=== PATIENT | female | born 1960 | race Caucasian/White ===

== ENCOUNTER 2021-08-15 07:13 | Outpatient (REF) | payer OTHER, SELFPAY ==
[2021-08-15 11:43] LABS: MANUAL DIFF FLAG NO
[2021-08-15 11:49] LABS: Basophils Absolute Auto 0.1 X10*3/uL (0.0-0.2); Basophils Percent Auto 0.7 % (0-2); Eosinophils Absolute Auto 0.4 X10*3/uL (0.0-0.4); Eosinophils Percent Auto 5.2 % (0-4); Hematocrit 43.9 % (37.0-47.0); Hemoglobin 14.3 g/dl (12.0-16.0); Imm Gran Abs Auto 0.02 X10*3/uL (0.00-0.03); Imm Gran Pct Auto 0.3 % (0.0-0.4); Lymphocytes Absolute Auto 2.2 X10*3/uL (1.2-4.9); Lymphocytes Percent Auto 32.4 % (20-40); Mean Corpuscular HGB Conc 32.6 g/dl (31.0-35.0); Mean Corpuscular Hemoglobin 30.2 pg (27.0-33.0); Mean Corpuscular Volume 92.6 fL (80.0-98.0); Mean Platelet Volume 11.2 fL (9.4-12.3); Monocytes Absolute Auto 0.5 X10*3/uL (0.1-1.2); Monocytes Percent Auto 6.8 % (2-11); Neutrophils Absolute Auto 3.8 x10*3/uL (2.0-8.3); Neutrophils Percent Auto 54.6 % (45-73); Platelet Count 284 X10*3/uL (160-400); Red Blood Count 4.74 X10*6/uL (4.20-5.50); Red Cell Distribution Width 12.4 % (11.0-16.0); White Blood Count 6.9 X10*3/uL (4.8-10.8)
[2021-08-15 11:52] LABS: Appearance Urine HAZY; Color Urine YELLOW; Glucose Urine UA NEG (NEG); Leukocyte Esterase Urine TRACE (NEG); Nitrite Urine NEG (NEG); Specific Gravity - Urine 1.015 (1.005-1.025); Urine Blood NEG (NEG); Urine Ketones 5 MG/DL (NEG); Urine Protein TRACE MG/DL (NEG-TRACE)
[2021-08-15 12:15] LABS: Alanine Aminotransferase 15 U/L (0-31); Albumin Level 4.2 g/dL (3.5-5.0); Alkaline Phosphatase 65 U/L (39-117); Anion Gap 9 (12-20); Aspartate Amino Transferase 17 U/L (5-31); Bilirubin Total 0.8 mg/dL (0.0-1.0); Blood Urea Nitrogen 14 mg/dL (9-16); Calcium 9.4 mg/dL (8.4-10.2); Carbon Dioxide 28 mmol/L (22-29); Chloride 108 mmol/L (96-108); Cholesterol 233 mg/dL; Estimated Glomerular Filt Rate > 60; Glucose Random 100 mg/dL (60-115); HDL Cholesterol 51 mg/dL; LDL Cholesterol Calculated 166 mg/dl; Potassium 4.3 mmol/L (3.3-5.1); Sodium 141 mmol/L (135-145); Total Protein 6.6 g/dL (6.5-8.0); Triglycerides 81 mg/dL
[2021-08-15 12:18] LABS: Estimated Average Glucose 88 mg/dL; Hemoglobin A1c % 4.7 %
[2021-08-15 12:23] LABS: Free T4 (Free Thyroxine) 1.05 ng/dL (0.71-1.85); Thyroid Stimulating Hormone 3.57 uIU/mL (0.32-4.0); Vitamin D 25-OH Total 26.9 ng/mL (>30)
[2021-08-15 12:31] LABS: Vitamin B12 399 pg/mL (200-900)
[2021-08-15 13:07] LABS: Bacteria Urine 1+ /LPF; RBC Urine 0 /HPF (0); Squamous Epithelial Cell Urine 3+ /LPF; WBC Urine 0-2 /HPF (0-4)
[2021-08-19 13:32] LABS: Venous Lead 1 mcg/dL (<5)
== END 2021-08-15 07:14 | disposition home or self-care (01) ==
LOC: HO.HMGCLDS 07:13
PROVIDERS: PCP Internal Medicine; Visit Provider Internal Medicine
DX: Z13.88 Encounter for screening for disorder due to exposure to contaminants (principal); E78.00 Pure hypercholesterolemia, unspecified; R73.01 Impaired fasting glucose
CPT/HCPCS: 36415; 80053; 80061; 81001; 82306; 82607; 82746; 83036; 83655; 84439; 84443; 85025

== ENCOUNTER 2022-09-29 07:04 | Outpatient (REF) | payer OTHER, SELFPAY ==
[2022-09-29 11:15] LABS: MANUAL DIFF FLAG NO
[2022-09-29 11:33] LABS: Basophils Absolute Auto 0.1 X10*3/uL (0.0-0.2); Basophils Percent Auto 0.9 % (0-2); Eosinophils Absolute Auto 0.3 X10*3/uL (0.0-0.4); Eosinophils Percent Auto 4.6 % (0-4); Hematocrit 42.6 % (37.0-47.0); Imm Gran Abs Auto 0.02 X10*3/uL (0.00-0.03); Imm Gran Pct Auto 0.3 % (0.0-0.4); Lymphocytes Absolute Auto 2.3 X10*3/uL (1.2-4.9); Lymphocytes Percent Auto 33.2 % (20-40); Mean Corpuscular HGB Conc 32.9 g/dl (31.0-35.0); Mean Corpuscular Hemoglobin 30.2 pg (27.0-33.0); Mean Platelet Volume 11.2 fL (9.4-12.3); Monocytes Absolute Auto 0.5 X10*3/uL (0.1-1.2); Monocytes Percent Auto 6.9 % (2-11); Neutrophils Absolute Auto 3.7 x10*3/uL (2.0-8.3); Neutrophils Percent Auto 54.1 % (45-73); Platelet Count 280 X10*3/uL (160-400); Red Blood Count 4.63 X10*6/uL (4.20-5.50); Red Cell Distribution Width 12.5 % (11.0-16.0); White Blood Count 6.9 X10*3/uL (4.8-10.8)
[2022-09-29 12:16] LABS: Estimated Average Glucose 88 mg/dL; Hemoglobin A1c % 4.7 %
[2022-09-29 12:20] LABS: Alanine Aminotransferase 14 U/L (0-31); Albumin Level 4.1 g/dL (3.5-5.0); Alkaline Phosphatase 69 U/L (39-117); Anion Gap 12 (12-20); Aspartate Amino Transferase 16 U/L (5-31); Bilirubin Total 1.1 mg/dL (0.0-1.0); Blood Urea Nitrogen 11 mg/dL (9-16); C Reactive Protein 0.18 mg/dL (< or = 0.50); Calcium 9.3 mg/dL (8.4-10.2); Carbon Dioxide 27 mmol/L (22-29); Chloride 108 mmol/L (96-108); Cholesterol 207 mg/dL; Estimated Glomerular Filt Rate > 60; Glucose Random 84 mg/dL (60-115); HDL Cholesterol 51 mg/dL; LDL Cholesterol Calculated 139 mg/dl; Potassium 4.2 mmol/L (3.3-5.1); Sodium 143 mmol/L (135-145); Total Protein 6.3 g/dL (6.5-8.0); Triglycerides 85 mg/dL
[2022-09-29 12:27] LABS: Thyroid Stimulating Hormone 2.54 uIU/mL (0.32-4.0); Vitamin B12 504 pg/mL (200-900); Vitamin D 25-OH Total 28.8 ng/mL (>30)
[2022-09-29 12:32] LABS: Erythrocyte Sedimentation Rate 6 MM/HR (0-20)
== END 2022-09-29 07:05 | disposition home or self-care (01) ==
LOC: HO.HMGCLDS 07:04
PROVIDERS: PCP Internal Medicine; Visit Provider Internal Medicine
DX: K21.9 Gastro-esophageal reflux disease without esophagitis (principal); E78.00 Pure hypercholesterolemia, unspecified; R73.01 Impaired fasting glucose; Z82.49 Family history of ischemic heart disease and other diseases of the circulatory system; E55.9 Vitamin D deficiency, unspecified
CPT/HCPCS: 36415; 80053; 80061; 82306; 82607; 82746; 83036; 84443; 85025; 85652; 86140

== ENCOUNTER 2023-03-03 08:24 | Outpatient (AMB) | payer OTHER, SELFPAY ==
[2023-03-03 08:32] VITALS: BP 102/68; PULSE 64; O2SAT 97; BMI 28.3
--- NOTE | 2023-03-03 08:32 | A.OFFPC_ITS ---
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 August 2022 last seen colonoscopy up-to-date 2018 with tubular adenoma.thoracic back pain, deny fall or trauma. decline xray to be done. Patient had a lot of questions regarding the blood work each in every abnormality is explain for eosinophilia was concerned about parasites, elevated bilirubin , change in sodium, hemoglobin A1c patient has some concerns about dementia also and that since she had some family history would like to improve her chances on not getting. Was concerned about a po E 4 patient is advised to follow-up with Neurology for further workup. [facility] Medical History (Updated 03/03/23 @ 09:07 by Roz Sellers MD) Breast cancer screening by mammogram Cervical cancer GERD (gastroesophageal reflux disease) Surgical History Wrist fracture, left Ovarian cyst S/P breast lumpectomy Family History Mother Dementia, Onset Age: 70 Father Heart valve replaced Sister No problems noted. Brother No problems noted. Brother No problems noted. Brother CAD (coronary artery disease) Daughter No problems noted. Maternal Grandmother Dementia Maternal Grandfather Heart attack Maternal Aunt CVA (cerebral vascular accident) Maternal Uncle CAD (coronary artery disease) Other Colon cancer Social History Housing: House Alcohol intake: current Patient Tobacco Use Status: Former Tobacco user Tobacco use type: Cigarette Years Smoked: quit 24 years old e-Cigarette/Vaping Use: Never Used Second Hand Smoke Exposure: No service: No Current occupational status: employed Cognitive needs: No Hearing needs: No Vision needs: No Questionnaire Thrive Questionnaire Date Thrive assessed: 09/01/22 LOWELL-7 AMB Questionnaire LOWELL-7 Date LOWELL - 7 assessed: 09/01/22 Source: Developed by Drs. Tony Conti, Digna Severino, Cyrus Wagner and colleagues, with an educational babak from [employer]. Physical exam (Primary Care) BMI result Body Mass Index 28.3 Tobacco/Smoking Status: Tobacco use Status Tobacco use date assessed 09/01/22 03/03/23 08:36 Patient Tobacco Use Status Former Tobacco user 03/03/23 08:36 Tobacco use type Cigarette 03/03/23 08:36 e-Cigarette/Vaping Use Never Used 03/03/23 08:36 Thrive Assessment: Date of Thrive Assessment Date Thrive assessed 09/01/22 03/03/23 08:36 Const General: alert; No acute distress Eyes Conjunctivae: conjunctivae normal Resp Auscultation: clear to auscultation bilaterally Cardio Rate: regular rate Rhythm: regular rhythm GI Inspection: Yes normal to inspection Extrem General: Yes normal to inspection and No edema Office Procedures Flu Questionnaire Does the patient have a severe egg allergy?: No Immunizations flu vacc [id number] 6mos up(PF) 60 mcg(15 mcgx4)/0.5 mL IM syringe Performing Provider: Roz Sellers MD [facility] [place] [facility] Documented (not given) by: TRINY Perez on 03/03/23 08:36 Reason Not Given: Patient Refused Assessment and Plan Assessment & Plan (1) Impaired fasting blood sugar: Code(s): R73.01 - Impaired fasting glucose Plan: Decrease the amount of carbohydrate intake, pasta, bread, rice and potatoes are all sugar and that is aside from all the sweet stuff, remember that fruits are good but they are Sweet also. September 2022 blood work is normal (2) GERD (gastroesophageal reflux disease): Code(s): K21.9 - Gastro-esophageal reflux disease without esophagitis Plan: Avoid the foods that causes that usually spicy foods, tomato products, juices, coffee, soda and foods that your sensitive to. After eating do not lie down, allow 3-4 hours before in lie down. And keep the head of bed above 30 degrees to avoid the acid from going up. (3) Hypercholesterolemia: Code(s): E78.00 - Pure hypercholesterolemia, unspecified Plan: Avoid fried foods, chicken skin, eggs, butter margarine, pastries and meat. Be it pork or beef they have a lot of cholesterol LDL goal of less than 130 and triglyceride of less than 150. Diet control (4) Cognitive change: Code(s): R41.89 - Other symptoms and signs involving cognitive functions and awareness (5) Thoracic back pain: Code(s): M54.6 - Pain in thoracic spine (6) Bilateral hip pain: Code(s): M25.551 - Pain in right hip; M25.552 - Pain in left hip Orders: Orders Influenza [id number] Immunization Today Z23 - Encounter for immunization Complete Blood Count Auto Diff Today K21.9 - Gastro-esophageal reflux disease without esophagitis Thyroid Stimulating Hormone Today K21.9 - Gastro-esophageal reflux disease without esophagitis Vitamin D 25-OH Total Today K21.9 - Gastro-esophageal reflux disease without esophagitis Erythrocyte Sedimentation Rate Today K21.9 - Gastro-esophageal reflux disease without esophagitis C Reactive Protein Today K21.9 - Gastro-esophageal reflux disease without esophagitis XR thoracic spine 2V Today M54.6 - Pain in thoracic spine Comprehensive Met. Panel Today K21.9 - Gastro-esophageal reflux disease without esophagitis UA w Microscopic Today K21.9 - Gastro-esophageal reflux disease without esophagitis Free T4 (Free Thyroxine) Today K21.9 - Gastro-esophageal reflux disease without esophagitis Vitamin B12 and Folate Today K21.9 - Gastro-esophageal reflux disease without esophagitis Lipid Panel Today E78.00 - Pure hypercholesterolemia, unspecified, K21.9 - Gastro-esophageal reflux disease without esophagitis Referrals Neurology Referral R41.89 - Other symptoms and signs involving cognitive functions and awareness Coding Level of Care Code Est Pt Level 4 (27134) Diagnoses Impaired fasting blood sugar R73.01 GERD (gastroesophageal reflux disease) K21.9 Hypercholesterolemia E78.00 Cognitive change R41.89 Thoracic back pain M54.6 Bilateral hip pain M25.551; M25.552
== END 2023-03-03 09:13 | disposition home or self-care (01) ==
PROVIDERS: Visit Provider Internal Medicine
DX: R73.01 Impaired fasting glucose (principal); K21.9 Gastro-esophageal reflux disease without esophagitis; E78.00 Pure hypercholesterolemia, unspecified; R41.89 Other symptoms and signs involving cognitive functions and awareness; M54.6 Pain in thoracic spine; M25.551 Pain in right hip; M25.552 Pain in left hip
CPT/HCPCS: 99214

== ENCOUNTER 2023-04-15 07:29 | Outpatient (REF) | payer OTHER, SELFPAY ==
[2023-04-15 11:14] LABS: MANUAL DIFF FLAG NO
[2023-04-15 11:29] LABS: Appearance Urine Cloudy; Color Urine Yellow; Glucose Urine UA Negative (Negative); Leukocyte Esterase Urine Moderate (2+) (Negative); Nitrite Urine Negative (Negative); PH 7.5 (5.0-9.0); UMIC TRIGGER UA YES; Urine Blood Negative (Negative); Urine Ketones Negative (Negative); Urine Protein Negative (Neg-Trace)
[2023-04-15 11:33] LABS: Bacteria Urine 1+ (None Seen); Hyaline Casts Urine 0-2 /LPF (0-2); RBC Urine 0-2 /HPF (0-2)
[2023-04-15 11:44] LABS: Basophils Absolute Auto 0.1 X10*3/uL (0.0-0.2); Basophils Percent Auto 0.8 % (0-2); Eosinophils Absolute Auto 0.4 X10*3/uL (0.0-0.4); Eosinophils Percent Auto 5.8 % (0-4); Hematocrit 42.5 % (37.0-47.0); Hemoglobin 13.8 g/dl (12.0-16.0); Imm Gran Abs Auto 0.01 X10*3/uL (0.00-0.03); Imm Gran Pct Auto 0.2 % (0.0-0.4); Lymphocytes Absolute Auto 1.9 X10*3/uL (1.2-4.9); Lymphocytes Percent Auto 30.2 % (20-40); Mean Corpuscular HGB Conc 32.5 g/dl (31.0-35.0); Mean Corpuscular Hemoglobin 29.9 pg (27.0-33.0); Mean Platelet Volume 10.6 fL (9.4-12.3); Monocytes Absolute Auto 0.4 X10*3/uL (0.1-1.2); Monocytes Percent Auto 6.9 % (2-11); Neutrophils Absolute Auto 3.5 x10*3/uL (2.0-8.3); Neutrophils Percent Auto 56.1 % (45-73); Platelet Count 271 X10*3/uL (160-400); Red Blood Count 4.62 X10*6/uL (4.20-5.50); Red Cell Distribution Width 12.1 % (11.0-16.0); White Blood Count 6.3 X10*3/uL (4.8-10.8)
[2023-04-15 12:06] LABS: Alanine Aminotransferase 17 U/L (0-31); Albumin Level 3.9 g/dL (3.5-5.0); Alkaline Phosphatase 70 U/L (39-117); Anion Gap 9 (12-20); Aspartate Amino Transferase 20 U/L (5-31); Bilirubin Total 0.5 mg/dL (0.0-1.0); Blood Urea Nitrogen 14 mg/dL (9-16); C Reactive Protein 0.13 mg/dL (< or = 0.50); Carbon Dioxide 29 mmol/L (22-29); Chloride 108 mmol/L (96-108); Cholesterol 220 mg/dL (<200); Estimated Glomerular Filt Rate > 60; Glucose Random 94 mg/dL (60-115); HDL Cholesterol 54 mg/dL (>40); LDL Cholesterol Calculated 156 mg/dL (<100); Potassium 4.1 mmol/L (3.3-5.1); Sodium 142 mmol/L (135-145); Total Protein 6.5 g/dL (6.5-8.0); Triglycerides 54 mg/dL (<150)
[2023-04-15 12:14] LABS: Free T4 (Free Thyroxine) 0.94 ng/dL (0.71-1.85); Thyroid Stimulating Hormone 2.54 uIU/mL (0.32-4.0); Vitamin D 25-OH Total 54.8 ng/mL (>30)
[2023-04-15 12:22] LABS: Erythrocyte Sedimentation Rate 9 MM/HR (0-20)
[2023-04-15 12:31] LABS: Folate 12.1 ng/mL (> or = 4.0); Vitamin B12 504 pg/mL (200-900)
== END 2023-04-15 07:30 | disposition home or self-care (01) ==
LOC: HO.HMGCLDS 07:29
PROVIDERS: PCP Internal Medicine; Visit Provider Internal Medicine
DX: K21.9 Gastro-esophageal reflux disease without esophagitis (principal); E78.00 Pure hypercholesterolemia, unspecified
CPT/HCPCS: 36415; 80053; 80061; 81001; 82306; 82607; 82746; 84439; 84443; 85025; 85652; 86140

== ENCOUNTER 2023-07-28 08:05 | Outpatient (AMB) | payer OTHER, SELFPAY ==
--- NOTE | 2023-07-28 08:07 | A.OFFVIS_ITS ---
Intake Vital Signs 07/28/23 08:08 Height 5 ft 2 in Weight 157 lb 8 oz BMI 28.8 BP 108/62 Blood Pressure Location Rt brachial Position Sitting Respiration 16 Pulse 69 Pulse Source Pulse Oximeter Pulse Oximetry (%) 98 Oxygen Delivery Method Room Air Intake Visit Reasons: ENP- Cognitive awareness-LVM Intake Note: Pt presents for new patient evaluation for cognitive impairment. Manager Advertising Required: No Allergies ampicillin Allergy (Mild, Verified 07/28/23 08:07) Unknown Medication List - Last Reconciled 07/28/23 by Malu Bee MD ascorbate calcium (vitamin C) 500 mg PO DAILY cholecalciferol (vitamin D3) 50 mcg PO DAILY coenzyme Q10 (CoQ-10) 30 mg PO DAILY ginkgo biloba 40 mg PO DAILY multivitamin 1 tab PO DAILY [NEuroQ 2 ea PO] HPI HPI Comments History of Present Illness Details 63y/o female comes for evaluation of cog nitive change. she has a family h/o dementia in her mother and maternal grandmother. The patient was tested 10 years ago when she had mild cognitive issues - neuropsych testing was normal. She started noticing cognitive issues about 10 years ago and has mildly progressed. she denies confusion but has trouble retrieving words, had trouble remembering her anniversary date, when typing she realized she was mixing words or letters, some trouble finding her phone and keys, trouble finding names of people etc. when she speaks she feels like wrong words come out. she is concerned about her family history and tries to keep track of all the research . she is also concerned about diabetes worsening her cognition.she has no h/o diabetes. she used to be prediabetic and with changing her diet and lifestyle her Hg A 1 C improved. 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 stress, sleep deprivation makes the cognitive issues worse. No h/o depression or anxiety, no h/o alcoholism , no h/o head injury. she also started noticing numbness and tingling in ree hands, usually at night wakes up with numbness. she has pain in her left hand - she has h/o wrist fracture 5 years ago . she was exposed to lead when she was painting an old house. [facility] Medical History (Updated 07/28/23 @ 11:50 by Malu Bee MD) Family history of Alzheimer's disease Numbness and tingling in both hands Breast cancer screening by mammogram Cervical cancer GERD (gastroesophageal reflux disease) Surgical History Wrist fracture, left Ovarian cyst S/P breast lumpectomy Family History Mother Dementia, Onset Age: 70 Father Heart valve replaced Sister No problems noted. Brother No problems noted. Brother No problems noted. Brother CAD (coronary artery disease) Daughter No problems noted. Maternal Grandmother Dementia Maternal Grandfather Heart attack Maternal Aunt CVA (cerebral vascular accident) Maternal Uncle CAD (coronary artery disease) Other Colon cancer Social History Housing: House Alcohol intake: current Patient Tobacco Use Status: Former Tobacco user Tobacco use type: Cigarette Years Smoked: quit 24 years old e-Cigarette/Vaping Use: Never Used Second Hand Smoke Exposure: No service: No Current occupational status: employed Cognitive needs: No Hearing needs: No Vision needs: No Physical Exam Vital Signs: Last Vital Signs Pulse 69 07/28/23 08:08 Resp 16 07/28/23 08:08 BP 108/62 07/28/23 08:08 Pulse Ox 98 07/28/23 08:08 Oxygen Delivery Method Room Air 07/28/23 08:08 BMI result Body Mass Index 28.8 Const General: cooperative, healthy appearing, comfortable and no acute distress Nutritional Appearance: average body habitus Orientation/consciousness: patient oriented x3 Limitations: no limitations Eyes Pupils: Equal, round and reactive pupils present Neuro General: patient oriented x3, gait normal, tone normal, moves all extremities and no focal motor deficits Cranial nerves: Yes Facial sensation intact/muscles of mastication intact, Yes Equal, round and reactive pupils present, Yes Bilaterally intact EOM present, Yes Nystagmus not present, Yes Normal facial strength present, Yes Midline tongue present and Yes Symmetric palate elevation present Cognition (Neuro): normal cognition Gait exam (Neuro): Normal gait present Motor exam (neuro): 5/5 motor strength present throughout and Normal motor muscle tone present throughout Deep tendon reflexes (DTR's): Right triceps reflex intensity grade: 2+, Left triceps reflex intensity grade: 2+, Rt Biceps (C5, C6): 2+, Left biceps reflex intensity grade: 2+, Right brachioradialis reflex intensity grade: 2+, Left brac hioradialis reflex intensity grade: 2+, Right patellar reflex intensity grade: 2+ and Left patellar reflex intensity grade: 2+ Coordination: [id number] test normal Orientation What is the (year) (season) (date) (day) (month)?: year, season, date, day and month Where are we (state) (county) (town or city) (hospital) (floor)?: state, county, town or city, hospital/clinic and floor Registration Name of 3 unrelated objects clearly and slowly, then ask patient to repeat all 3 of them. (1st repeat determines score. Make sure they can repeat all three): object 1, object 2 and object 3 Attention & Calculation (CHOOSE ONE) Ask pt to begin with 100 & count backward by 7. Stop after 5 repeats. If pt cannot ask them to spell the word WORLD backward.: 93, 86, 79, 72 and 65 Recall Ask patient to repeat the 3 items from question #3.: object 1, object 2 and object 3 Language Show patient a wristwatch & ask what it is. Repeat for pencil.: watch and pencil Ask the patient to repeat the phrase 'No ifs, ands, or buts' after you.: correct Ask the patient to 'take a piece of paper with their right hand' 'fold paper in half' 'place paper on floor': take paper in right hand, fold paper in half and place paper on floor Print the sentence 'CLOSE YOUR EYES' on a piece. If patient actually closes eyes then score.: followed written direction Give patient a blank piece of paper & ask to write a sentence. Score if it contains a noun & verb.: sentence contains subject and verb Ask patient to copy figure of intersecting pentagons exactly. Score if all 10 angles & 2 intersects are included.: all 10 angles present & 2 are intersected Score Score: 30 Assessment & Plan Assessment & Plan (1) Cognitive change: Code(s): R41.89 - Other symptoms and signs involving cognitive functions and awareness (2) Family history of Alzheimer's disease: Code(s): Z82.0 - Family history of epilepsy and other diseases of the nervous system Plan She is interested in testing for ApOE4 gene - will order with [facility] or [facility] Neuropsych report [facility] MRI Brain EMG NCS upper extremities - ? carpal tunnel Reviewed labs . Cognitive therapy Orders: Orders Other Ref Test - Misc Today R41.89 - Other symptoms and signs involving cognitive functions and awareness, Z82.0 - Family history of epilepsy and other diseases of the nervous system MR brain wo con w neuroquant Today R41.89 - Other symptoms and signs involving cognitive functions and awareness NE electromyogram (EMG) Today R20.0 - Anesthesia of skin, R20.2 - Paresthesia of skin NE nerve conduction velocity Today R20.0 - Anesthesia of skin, R20.2 - Paresthesia of skin Referrals Speech and Hearing Referral R41.89 - Other symptoms and signs involving cognitive functions and awareness Medications: New [Left and Right wrist splint] As directed 1 ea 0RF carpal tunnel R20.0 - Anesthesia of skin, R20.2 - Paresthesia of skin Coding Level of Care Code New Pt Level 4 (22997) Diagnoses Cognitive change R41.89 Family history of Alzheimer's disease Z82.0
[2023-07-28 08:08] VITALS: BP 108/62; PULSE 69; RESP 16; O2SAT 98; BMI 28.8
== END 2023-07-28 09:09 | disposition home or self-care (01) ==
PROVIDERS: PCP Internal Medicine; Visit Provider Psychiatry & Neurology Neurology
DX: R41.89 Other symptoms and signs involving cognitive functions and awareness (principal); Z82.0 Family history of epilepsy and other diseases of the nervous system
CPT/HCPCS: 99204

== ENCOUNTER → 2023-07-28 08:05 | Outpatient (BNVA) | payer OTHER, SELFPAY | PROVIDERS: PCP Internal Medicine; Visit Provider Psychiatry & Neurology Neurology ==

== ENCOUNTER 2023-08-05 08:57 | Outpatient (REF) | payer OTHER, SELFPAY ==
--- NOTE | 2023-08-05 09:00 | EMG_ITS ---
Bilateral median and ulnar motor and sensory studies were performed. Bilateral radial and sensory studies were performed and median and lateral antecubital brachial sensory studies were performed. Paraspinal muscles were tested with a needle. IMPRESSION: Mild bilateral median neuropathy across carpal tunnel. MD SENA Ness/DONTRELL / [phone]
== END 2023-08-05 08:58 | disposition home or self-care (01) ==
LOC: HO.NEURO 08:57
PROVIDERS: PCP Internal Medicine; Visit Provider Psychiatry & Neurology Neurology
DX: R20.0 Anesthesia of skin (principal); R20.2 Paresthesia of skin
CPT/HCPCS: 95886; 95913

== ENCOUNTER 2023-08-12 09:18 | Outpatient (REF) | payer OTHER, SELFPAY | END 2023-08-12 09:19 | disposition home or self-care (01) | LOC: HO.HKASLDS 09:18 | PROVIDERS: Visit Provider Psychiatry & Neurology Neurology | DX: R41.89 Other symptoms and signs involving cognitive functions and awareness (principal); Z82.0 Family history of epilepsy and other diseases of the nervous system | CPT/HCPCS: 82542 ==

== ENCOUNTER 2023-08-18 18:48 | Outpatient (REF) | payer OTHER, SELFPAY ==
--- NOTE | ~2023-08-18 | MR_ITS ---
EXAMINATION: MRI OF THE BRAIN WITHOUT IV CONTRAST INDICATION: Symptoms and signs involving cognitive functions and awareness. COMPARISON: None available. TECHNIQUE: Multiplanar multisequence MR imaging of the brain without administration of intravenous contrast. FINDINGS: No acute intracranial hemorrhage or infarct. No edema, midline shift or hydrocephalus. No acute extra-axial fluid collections. The osseous structures are unremarkable. The pituitary gland, pineal gland and remaining midline structures are unremarkable. No orbital pathology. The paranasal sinuses and mastoid air cells are clear. MR/MR brain wo con w neuroquant IMPRESSION: No acute intracranial abnormalities.
== END 2023-08-18 18:49 | disposition home or self-care (01) ==
LOC: HO.MRI 18:48
PROVIDERS: PCP Internal Medicine; Visit Provider Psychiatry & Neurology Neurology
DX: R41.89 Other symptoms and signs involving cognitive functions and awareness (principal)
CPT/HCPCS: 70551; 76377

== ENCOUNTER 2023-09-09 06:56 | Outpatient (REF) | payer OTHER, SELFPAY ==
[2023-09-09 10:22] LABS: MANUAL DIFF FLAG NO
[2023-09-09 10:33] LABS: Basophils Absolute Auto 0.1 X10*3/uL (0.0-0.2); Eosinophils Absolute Auto 0.3 X10*3/uL (0.0-0.4); Eosinophils Percent Auto 4.9 % (0-4); Hematocrit 42.7 % (37.0-47.0); Hemoglobin 14.1 g/dl (12.0-16.0); Imm Gran Abs Auto 0.02 X10*3/uL (0.00-0.03); Imm Gran Pct Auto 0.3 % (0.0-0.4); Lymphocytes Absolute Auto 2.2 X10*3/uL (1.2-4.9); Lymphocytes Percent Auto 32.2 % (20-40); Mean Corpuscular Hemoglobin 30.3 pg (27.0-33.0); Mean Corpuscular Volume 91.8 fL (80.0-98.0); Mean Platelet Volume 10.9 fL (9.4-12.3); Monocytes Absolute Auto 0.5 X10*3/uL (0.1-1.2); Monocytes Percent Auto 6.7 % (2-11); Neutrophils Absolute Auto 3.7 x10*3/uL (2.0-8.3); Neutrophils Percent Auto 54.9 % (45-73); Platelet Count 267 X10*3/uL (160-400); Red Blood Count 4.65 X10*6/uL (4.20-5.50); Red Cell Distribution Width 12.4 % (11.0-16.0); White Blood Count 6.7 X10*3/uL (4.8-10.8)
[2023-09-09 11:08] LABS: Estimated Average Glucose 97 mg/dL
[2023-09-09 11:30] LABS: Alanine Aminotransferase 16 U/L (0-31); Alkaline Phosphatase 61 U/L (39-117); Anion Gap 13 (12-20); Aspartate Amino Transferase 19 U/L (5-31); Bilirubin Total 0.6 mg/dL (0.0-1.0); Blood Urea Nitrogen 16 mg/dL (9-16); Calcium 9.6 mg/dL (8.4-10.2); Carbon Dioxide 24 mmol/L (22-29); Chloride 107 mmol/L (96-108); Cholesterol 216 mg/dL (<200); Estimated Glomerular Filt Rate > 60; Free T4 (Free Thyroxine) 0.93 ng/dL (0.71-1.85); Glucose Random 85 mg/dL (60-115); HDL Cholesterol 55 mg/dL (>40); LDL Cholesterol Calculated 149 mg/dL (<100); Potassium 4.1 mmol/L (3.3-5.1); Sodium 140 mmol/L (135-145); Thyroid Stimulating Hormone 3.28 uIU/mL (0.32-4.0); Total Protein 6.6 g/dL (6.5-8.0); Triglycerides 63 mg/dL (<150); Vitamin D 25-OH Total 62.8 ng/mL (>30)
[2023-09-09 11:43] LABS: Folate 12.7 ng/mL (> or = 4.0); Vitamin B12 544 pg/mL (200-900)
== END 2023-09-09 06:57 | disposition home or self-care (01) ==
LOC: HO.HMGCLDS 06:56
PROVIDERS: PCP Internal Medicine; Visit Provider Internal Medicine
DX: R73.01 Impaired fasting glucose (principal); E78.00 Pure hypercholesterolemia, unspecified
CPT/HCPCS: 36415; 80053; 80061; 82306; 82607; 82746; 83036; 84439; 84443; 85025

== ENCOUNTER 2023-09-13 09:01 | Outpatient (AMB) | payer OTHER, SELFPAY ==
--- NOTE | 2023-09-13 09:02 | MHC.PC.OV ---
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 Allergies ampicillin Allergy (Mild, Verified 07/28/23 08:07) Unknown Medication List - Last Reconciled 09/13/23 by Roz Sellers MD ascorbate calcium (vitamin C) 500 mg PO DAILY cholecalciferol (vitamin D3) 50 mcg PO DAILY coenzyme Q10 (CoQ-10) 30 mg PO DAILY ginkgo biloba 40 mg PO DAILY [Left and Right wrist splint As directed] multivitamin 1 tab PO DAILY [NEuroQ 2 ea PO] Tobacco use date assessed: 09/13/23 Fall risk assessment: No Falls in past year Last assessed Fall Risk: 09/13/23 Dental Screening Dental Screen Date: 09/13/23 Did you have a dental visit in the last 12 months?: Yes Did you have a dental problem in the last 6 months where you did not have access to dental care?: No Was dental information given to patient?: Patient has dentist HPI Annual Exam HPI Details 63-year-old overweight female with impaired glucose tolerance GERD hypercholesterolemia coming in for physical exam last seen in February 2023. Patient's last colonoscopy was 2018 with tubular adenoma. Mammograms up-to-date review of the notes was seen by Neurology for cognitive impairment and had a CT scan done revealing negative results. In July 2023 had a nerve conduction test of the hands revealing mild bilateral median neuropathy across carpal tunnel. dizzy- 2 weeks ago- lasting 2 min dont remember. occ indigestion- gas, states 2x a week . . occ urgency mild leakage. [facility] Medical History (Updated 09/13/23 @ 09:16 by Roz Sellers MD) Family history of Alzheimer's disease Numbness and tingling in both hands Breast cancer screening by mammogram Cervical cancer GERD (gastroesophageal reflux disease) Surgical History Wrist fracture, left Ovarian cyst S/P breast lumpectomy Family History (Updated 09/13/23 @ 09:22 by Roz Sellers MD) Mother Dementia, Onset Age: 70 Father Heart valve replaced Sister No problems noted. Brother No problems noted. Brother No problems noted. Brother CAD (coronary artery disease) Daughter No problems noted. Maternal Grandmother Dementia Maternal Grandfather Heart attack Maternal Aunt CVA (cerebral vascular accident) Maternal Uncle CAD (coronary artery disease) Other Colon cancer Uterine cancer Social History (Updated 09/13/23 @ 09:23 by Roz Sellers MD) Housing: House Alcohol intake: current Comment: 3-4 x a week 1-2 glasses Patient Tobacco Use Status: Former Tobacco user Tobacco use type: Cigarette Years Smoked: quit 24 years old e-Cigarette/Vaping Use: Never Used Second Hand Smoke Exposure: No service: No Current occupational status: employed Cognitive needs: No Hearing needs: No Vision needs: No Questionnaire PHQ-9 Over the last 2 weeks, how often have you been bothered by any of the following problems? 1. Little interest or pleasure in doing things: not at all 2. Feeling down, depressed, or hopeless: not at all 3. Trouble falling or staying asleep, or sleeping too much: not at all 4. Feeling tired or having little energy: not at all 5. Poor appetite or overeating: not at all 6. Feeling bad about yourself - or that you are a failure or have let yourself or your family down: not at all 7. Trouble concentrating on things, such as reading the newspaper or watching television: not at all 8. Moving or speaking so slowly that other people could have noticed. Or the opposite - being so fidgety or restless that you have been moving around a lot more than usual: not at all 9. Thoughts that you would be better off or of hurting yourself in some way: not at all Total score: 0 Depression Screening Interpretation: Negative Depression Screening Done: Yes Source: Developed by Drs. Tony Conti, Digna Seevrino, Cyrus Wagner and colleagues, with an educational babak from [employer]. Thrive Questionnaire Date Thrive assessed: 09/13/23 I am a: Patient What is your living situation today?: I have a steady place to live Within the past 12 months, did the food you bought not last and you didn't have the money to get more?: Never true Within the past 12 months, did you worry whether your food would run out before you got money to buy more?: Never true Do you have trouble paying for medicines?: No Do you have trouble getting transportation to medical appointments?: No Do you have trouble paying your heating and electricity bill?: No Do you have trouble taking care of your child, family member or friend?: No Do you have trouble with day-to-day activities such as bathing, preparing meals, shopping, managing finances, etc.?: No Are you currently unemployed and looking for a job?: No Are you interested in more education?: No Please select the resources that you would like help with: None THRIVE Score: 0 AUDIT C Alcohol Use Questionnaire (AUDIT-C) 1. How often do you have a drink containing alcohol?: 2-3 times a week 2. How many drinks containing alcohol do you have on a typical day when you are drinking?: 1 or 2 3. How often do you have six or more drinks on one occasion?: Never Total Score: 3 LOWELL-7 AMB Questionnaire LOWELL-7 Date LOWELL - 7 assessed: 09/13/23 Feeling nervous, anxious, or on edge: 0 = Not at all Not being able to stop or control worryin = Not at all Worrying too much about different things: 0 = Not at all Trouble relaxin = Not at all Being so restless that it is hard to sit still: 0 = Not at all Becoming easily annoyed or irritable: 0 = Not at all Feeling afraid as if something awful might happen: 0 = Not at all Total LOWELL-7 score (0-4 normal; 5-9 mild; 10-14 moderate; 15-21 severe): 0 Source: Developed by Drs. Tony Conti, Digna Severino, Cyrus Wagner and colleagues, with an educational babak from [employer]. LOWELL-7 Assessment Billing LOWELL-7 Assessment Tool: LOWELL-7 Assessment 01906 Review of Systems Const Denies poor appetite and Denies weakness Eyes Denies no additional complaints ENT Reports Normal hearing present, Denies dizziness, Denies nasal congestion, Denies tinnitus and Denies sore throat Card Denies chest pain, Denies syncope, Denies rapid heart rate and Denies dyspnea Resp Denies cough and Denies dyspnea GI Denies change in stool character, Reports constipation, Denies diarrhea, Denies nausea and Denies vomiting Denies urinary frequency, Denies difficulty voiding and Denies dysuria Neuro Reports Normal hearing present, Denies confusion, Denies dizziness, Denies syncope and Denies weakness Psych Denies confusion Physical exam (Primary Care) Vital Signs: Last Vital Signs Pulse 69 09/13/23 09:03 BP 110/62 09/13/23 09:03 Pulse Ox 98 09/13/23 09:03 Oxygen Delivery Method Room Air 09/13/23 09:03 BMI result Body Mass Index 29.3 Tobacco/Smoking Status: Tobacco use Status Tobacco use date assessed 09/13/23 09/13/23 09:07 Patient Tobacco Use Status Former Tobacco user 09/13/23 09:02 Tobacco use type Cigarette 09/13/23 09:02 e-Cigarette/Vaping Use Never Used 09/13/23 09:02 PHQ-9: PHQ-9 Score PHQ-9: Total score 0 09/13/23 09:07 Depression Screening Interpretation: Negative Thrive Assessment: Date of Thrive Assessment Date Thrive assessed 09/13/23 09/13/23 09:07 Const General: No confusion Orientation/consciousness: No confusion HENMT Head: Yes normocephalic Ears: external ears normal and TM's normal bilaterally Face and sinus: Yes normal facial exam Mouth: moist mucous membranes Throat: Yes tonsils normal Eyes Conjunctivae: conjunctivae normal Pupils: Equal, round and reactive pupils present and Pupil accommodation reflex normal Direct Ophthalmoscopy: normal light reflex Neck Neck: No lymphadenopathy Thyroid: Thyroid normal Chest Chest palpation & inspection: normal inspection of the chest Resp Effort & Inspection: normal respiratory effort and no audible wheezes Auscultation: clear to auscultation bilaterally, no crackles, no wheezes and lung sounds not diminished Cardio Rate: regular rate Rhythm: regular rhythm Peripheral pulses: radial pulses present and dorsalis pedis present GI Palpation (GI): no masses Auscultation: normal bowel sounds and normoactive bowel sounds Rectal Exam - Female: deferred Skin General skin exam: no rashes or lesions noted Rashes: no rashes Neuro General: No confusion Cranial nerves: Yes Equal, round and reactive pupils present and Yes Normal hearing present Cognition (Neuro): normal cognition Gait exam (Neuro): Normal gait present Motor exam (neuro): 5/5 motor strength present throughout Deep tendon reflexes (DTR's): Right brachioradialis reflex intensity grade: 2+, Left brachioradialis reflex intensity grade: 2+, Right patellar reflex intensity grade: 2+ and Left patellar reflex intensity grade: 2+ Extrem General: No edema Assessment and Plan Assessment & Plan (1) Annual physical exam: Code(s): Z00.00 - Encounter for general adult medical examination without abnormal findings (2) Cognitive change: Code(s): R41.89 - Other symptoms and signs involving cognitive functions and awareness Plan: Patient is being followed up by Neurology MRI requested negative neuropsychiatry referral pending (3) Carpal tunnel syndrome on both sides: Comment: Mild EMG March 2023 Code(s): G56.03 - Carpal tunnel syndrome, bilateral upper limbs Plan: Mild carpal tunnel syndrome on testing advised to wear wrist splints/brace (4) Tubular adenoma of colon: Comment: Two thousand nineteen Code(s): D12.6 - Benign neoplasm of colon, unspecified Plan: Patient is reminded about colonoscopy (5) Hypercholesterolemia: Code(s): E78.00 - Pure hypercholesterolemia, unspecified Plan: Avoid fried foods, chicken skin, eggs, butter margarine, pastries and meat. Be it pork or beef they have a lot of cholesterol LDL goal of less than 130 and triglyceride of less than 150. (6) GERD (gastroesophageal reflux disease): Code(s): K21.9 - Gastro-esophageal reflux disease without esophagitis Plan: Avoid the foods that causes that usually spicy foods, tomato products, juices, coffee, soda and foods that your sensitive to. After eating do not lie down, allow 3-4 hours before in lie down. And keep the head of bed above 30 degrees to avoid the acid from going up. Orders: Referrals Gastroenterology Referral D12.6 - Benign neoplasm of colon, unspecified Coding Level of Care Code Est Pt Prev Care 40-64y(05968) Diagnoses Annual physical exam Z00.00 Cognitive change R41.89 Carpal tunnel syndrome on both sides G56.03 Tubular adenoma of colon D12.6 Hypercholesterolemia E78.00 GERD (gastroesophageal reflux disease) K21.9 Additional Codes LOWELL-7 Assessment Billing - LOWELL-7 Assessment Tool: LOWELL-7 Assessment 89092 ([id number])
[2023-09-13 09:03] VITALS: BP 110/62; PULSE 69; O2SAT 98; BMI 29.3
== END 2023-09-13 09:43 | disposition home or self-care (01) ==
PROVIDERS: PCP Internal Medicine; Visit Provider Internal Medicine
DX: Z00.00 Encounter for general adult medical examination without abnormal findings (principal); R41.89 Other symptoms and signs involving cognitive functions and awareness; G56.03 Carpal tunnel syndrome, bilateral upper limbs; D12.6 Benign neoplasm of colon, unspecified; E78.00 Pure hypercholesterolemia, unspecified; K21.9 Gastro-esophageal reflux disease without esophagitis
CPT/HCPCS: 99396

== ENCOUNTER 2023-10-22 09:01 | Outpatient (AMB) | payer OTHER, SELFPAY ==
[2023-10-22 09:01] VITALS: BP 118/70; PULSE 66; TEMP 36.6; O2SAT 97; BMI 28.7
--- NOTE | 2023-10-22 09:01 | MHC.OFFWIV ---
Intake Vital Signs 10/22/23 09:01 Height 5 ft 2 in Weight 157 lb BMI 28.7 BP 118/70 Blood Pressure Location Lt brachial Position Sitting Pulse 66 Pulse Source Pulse Oximeter Temp 97.8 F Temp Source Temporal Artery Scan Pulse Oximetry (%) 97 Oxygen Delivery Method Room Air Intake Visit Reasons: EP ?Tick bite on neck Intake Note: pt is here today for tick bite on neck started 2 days ago Patient Tobacco Use Status: Former Tobacco user Allergies ampicillin Allergy (Mild, Verified 10/22/23 09:04) Unknown Do you need a note to return to daycare/school/sports/work: No HPI HPI Comments History of Present Illness Details Patient is a 63-year-old female complaining of a possible tick bite on the right side of her neck x2 days. She states she was out riding her bike and doing some gardening so it is possible it could have been a tick that bit her. She did not see a tick specifically but she is she is concerned. She denies any fevers. [facility] Medical History (Updated 10/22/23 @ 09:20 by Radha Thurman PA-C) Family history of Alzheimer's disease Numbness and tingling in both hands Breast cancer screening by mammogram Cervical cancer GERD (gastroesophageal reflux disease) Surgical History Wrist fracture, left Ovarian cyst S/P breast lumpectomy Family History (Updated 09/13/23 @ 09:22 by Roz Sellers MD) Mother Dementia, Onset Age: 70 Father Heart valve replaced Sister No problems noted. Brother No problems noted. Brother No problems noted. Brother CAD (coronary artery disease) Daughter No problems noted. Maternal Grandmother Dementia Maternal Grandfather Heart attack Maternal Aunt CVA (cerebral vascular accident) Maternal Uncle CAD (coronary artery disease) Other Colon cancer Uterine cancer Social History (Updated 09/13/23 @ 09:23 by Roz Sellers MD) Housing: House Alcohol intake: current Comment: 3-4 x a week 1-2 glasses Patient Tobacco Use Status: Former Tobacco user Tobacco use type: Cigarette Years Smoked: quit 24 years old e-Cigarette/Vaping Use: Never Used Second Hand Smoke Exposure: No service: No Current occupational status: employed Cognitive needs: No Hearing needs: No Vision needs: No Review of Systems Const All systems reviewed & are unremarkable except as noted in HPI and below Physical Exam Vital Signs: Last Vital Signs Temp 97.8 F 10/22/23 09:01 Pulse 66 10/22/23 09:01 BP 118/70 10/22/23 09:01 Pulse Ox 97 10/22/23 09:01 Oxygen Delivery Method Room Air 10/22/23 09:01 BMI result Body Mass Index 28.7 Const General: cooperative, healthy appearing, comfortable, no acute distress and well developed Orientation/consciousness: patient oriented x3 Limitations: no limitations Eyes General: appearance normal, both eyes and all related structures Resp Effort & Inspection: normal respiratory effort and able to speak in complete sentences Skin Other: large pinpoint bridger on right lateral neck with surrounding erythema and slight induration (not an e migrans rash), no warmth, no ecchymosis. Neuro General: patient oriented x3 Assessment & Plan Assessment & Plan (1) Tick bite: Code(s): W57.XXXA - Bitten or stung by nonvenomous insect and other nonvenomous arthropods, initial encounter Qualifiers: Encounter type: initial encounter Site of tick bite: unspecified part of neck Qualified Code(s): S10.96XA - Insect bite of unspecified part of neck, initial encounter; W57.XXXA - Bitten or stung by nonvenomous insect and other nonvenomous arthropods, initial encounter Plan: Treated with prophylactic dose of doxycycline, advised if it gets worse to follow up with her PCP or come back to the walk-in clinic. Plan See above Medications: New doxycycline monohydrate take 2 tablets once 200 mg (2 x 100 mg) PO DAILY 2 tabs 0RF W57.XXXA - Bitten or stung by nonvenomous insect and other nonvenomous arthropods, initial encounter Coding Level of Care Code Est Pt Level 2 (92858) Diagnoses Tick bite of neck, initial encounter S10.96XA; W57.XXXA Encounter type: initial encounter Site of tick bite: unspecified part of neck
== END 2023-10-22 10:26 | disposition home or self-care (01) ==
PROVIDERS: PCP Internal Medicine; Visit Provider Physician Assistant
DX: S10.96XA Insect bite of unspecified part of neck, initial encounter (principal); W57.XXXA Bitten or stung by nonvenomous insect and other nonvenomous arthropods, initial encounter
CPT/HCPCS: 99213

== ENCOUNTER 2023-11-25 07:32 | Outpatient (AMB) | payer OTHER, SELFPAY ==
--- NOTE | 2023-11-25 07:33 | A.OFFVIS_ITS ---
Vital Signs 11/25/23 07:34 Height 5 ft 2 in Weight 161 lb 4 oz BMI 29.5 BP 98/62 Blood Pressure Location Rt brachial Position Sitting Respiration 16 Pulse 71 Pulse Source Pulse Oximeter Pulse Oximetry (%) 98 Oxygen Delivery Method Room Air Intake Visit Reasons: 4 month F/U - Confirmed Intake Note: Pt presents for 4 month follow up for cognitive change. 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 she was negative for APOe4. MRI brain was normal she is doing well. Her sleep is ok - some nights are orse and when she is stressed or sleep deprived her cognition changes. History from last visit-she has a family h/o dementia in her mother and maternal grandmother. The patient was tested 10 years ago when she had mild cognitive issues - neuropsych testing was normal. She started noticing cognitive issues about 10 years ago and has mildly progressed. she denies confusion but has trouble retrieving words, had trouble remembering her anniversary date, when typing she realized she was mixing words or letters, some trouble finding her phone and keys, trouble finding names of people etc. when she speaks she feels like wrong words come out. she is concerned about her family history and tries to keep track of all the research . she is also concerned about diabetes worsening her cognition.she has no h/o diabetes. she used to be prediabetic and with changing her diet and lifestyle her Hg A 1 C improved. No h/o depression or anxiety, no h/o alcoholism , no h/o head injury. she also started noticing numbness and tingling in ree hands, usually at night wakes up with numbness. she has pain in her left hand - she has h/o wrist fracture 5 years ago . she was exposed to lead when she was painting an old house. [facility] Medical History (Updated 11/25/23 @ 07:56 by Malu Bee MD) Carpal tunnel syndrome on both sides Family history of Alzheimer's disease Numbness and tingling in both hands Breast cancer screening by mammogram Cervical cancer GERD (gastroesophageal reflux disease) Surgical History Wrist fracture, left Ovarian cyst S/P breast lumpectomy Family History Mother Dementia, Onset Age: 70 Father Heart valve replaced Sister No problems noted. Brother No problems noted. Brother No problems noted. Brother CAD (coronary artery disease) Daughter No problems noted. Maternal Grandmother Dementia Maternal Grandfather Heart attack Maternal Aunt CVA (cerebral vascular accident) Maternal Uncle CAD (coronary artery disease) Other Colon cancer Uterine cancer Social History Housing: House Alcohol intake: current Comment: 3-4 x a week 1-2 glasses Patient Tobacco Use Status: Former Tobacco user Tobacco use type: Cigarette Years Smoked: quit 24 years old e-Cigarette/Vaping Use: Never Used Second Hand Smoke Exposure: No service: No Current occupational status: employed Cognitive needs: No Hearing needs: No Vision needs: No Physical Exam Vital Signs: Last Vital Signs Pulse 71 11/25/23 07:34 Resp 16 11/25/23 07:34 BP 98/62 11/25/23 07:34 Pulse Ox 98 11/25/23 07:34 Oxygen Delivery Method Room Air 11/25/23 07:34 BMI result Body Mass Index 29.5 Const General: cooperative, healthy appearing, comfortable and no acute distress Nutritional Appearance: average body habitus Orientation/consciousness: patient oriented x3 Limitations: no limitations Eyes Pupils: Equal, round and reactive pupils present Neuro General: patient oriented x3, gait normal, tone normal, moves all extremities and no focal motor deficits Cranial nerves: Yes Facial sensation intact/muscles of mastication intact, Yes Equal, round and reactive pupils present, Yes Bilaterally intact EOM present, Yes Nystagmus not present, Yes Normal facial strength present, Yes Midline tongue present and Yes Symmetric palate elevation present Cognition (Neuro): normal cognition Gait exam (Neuro): Normal gait present Motor exam (neuro): 5/5 motor strength present throughout and Normal motor muscle tone present throughout Coordination: [id number] test normal Assessment & Plan Assessment & Plan (1) Cognitive change: Code(s): R41.89 - Other symptoms and signs involving cognitive functions and awareness Category: Medical (2) Family history of Alzheimer's disease: Code(s): Z82.0 - Family history of epilepsy and other diseases of the nervous system Category: Medical (3) Carpal tunnel syndrome on both sides: Comment: mild Code(s): G56.03 - Carpal tunnel syndrome, bilateral upper limbs Category: Medical Plan Continue cognitive exercises, stress reduction. Avoid sleep deprivation Continue wrist splint Neuropsych report form 2015 was normal MRI brain results discussed. Coding Level of Care Code Est Pt Level 4 (35525) Diagnoses Cognitive change R41.89 Family history of Alzheimer's disease Z82.0 Carpal tunnel syndrome on both sides G56.03
[2023-11-25 07:34] VITALS: BP 98/62; PULSE 71; RESP 16; O2SAT 98; BMI 29.5
== END 2023-11-25 07:59 | disposition home or self-care (01) ==
PROVIDERS: PCP Internal Medicine; Visit Provider Psychiatry & Neurology Neurology
DX: R41.89 Other symptoms and signs involving cognitive functions and awareness (principal); Z82.0 Family history of epilepsy and other diseases of the nervous system; G56.03 Carpal tunnel syndrome, bilateral upper limbs
CPT/HCPCS: 99214

== ENCOUNTER → 2023-11-25 07:32 | Outpatient (BNVA) | payer OTHER, SELFPAY | PROVIDERS: PCP Internal Medicine; Visit Provider Psychiatry & Neurology Neurology ==

== ENCOUNTER 2024-06-10 09:37 | Outpatient (REF) | payer MEDICARE, SELFPAY ==
--- OUTSIDE RECORDS SUMMARY | 2024-06-10 10:28 | XMS_ITS | Clinical Summary ---
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 Name Role Phone Unavailable Primary Care Provider Unavailabl e Social History Tobacco Use Types Packs/Day Years Used Date Smoking Tobacco: Never Assessed Sex and Gender Information Value Date Recorded Sex Assigned at Not on file Gender Identity Not on file Sexual Orientation Not on file Plan of Treatment Health Maintenance Due Date Last Done Comments DTaP,Tdap,and Td Vaccines (1 - Tdap) 1978 Cervical Cancer Screening: Pap Smear 1980 Zoster Vaccines (1 of 2) 2009 Colorectal Cancer Screening: Colonoscopy 04/11/2022 Depression Screening 04/11/2022 Hepatitis C Screening 04/11/2022 Osteoporosis Screening (Bone Density Screening) 04/11/2022 Social Influencers of Health Screening 04/11/2022 COVID-19 Vaccine ( - season) 2024 Influenza Vaccine (#1) 2024 Falls Risk Assessment 2024 Pneumococcal Vaccine: 65+ Years (1 of 1 - PCV) 2024 Breast Cancer Screening 10/19/2024 10/20/19 23, 10/15/2021, 06/28/2019, Additional history exists RSV Immunization Patients 60+ Years Old (1 - 1-dose 75+ series) 2034 HIB Vaccines Aged Out No longer eligi ble based on patient's age to complete this topic HPV Vaccines Aged Out No longer eligi ble based on patient's age to complete this topic Hepatitis A Vaccines Aged Out No long er eligible based on patient's age to complete this topic Hepatitis B Vaccines Aged Out No long er eligible based on patient's age to complete this topic IPV Vaccines Aged Out No longer eligi ble based on patient's age to complete this topic MMR Vaccines Aged Out No longer eligi ble based on patient's age to complete this topic Meningococcal ACWY Vaccine Aged Out N o longer eligible based on patient's age to complete this topic Pneumococcal Vaccine: Pediatrics (0 to 5 Years) and At-Risk Patients (6 to 64 Years) Aged Out No longer eligible based on patient's age to complete this topic RSV Immunization Patients Under 20 months Aged Out No longer eligible based on patient's age to complete this topic Varicella Vaccines Aged Out No longer eligible based on patient's age to complete this topic Procedures Procedure Name Priority Date/Time Associated Diagnosis Comments [facility] SCREENING DIGITAL Routine 10/19/2022 4:23 PM EDT Encounter for screening mammogram for malignant neoplasm of breast from Last 3 Months or Most Recently Relevant to Health Maintenance Results * [facility] SCREENING DIGITAL (10/19/2022 4:23 PM EDT) Anatomical Region Laterality Modality Mammography 10/19/2022 7:31 AM EDT Narrative 10/19/2022 4:23 PM EDT [facility] Diagnostic Imaging Department [address] [place], [place] [id number] Patient: ??SHAJI HOPE ?/Age/Sex: 1960 - Unit#: ??[id number] ? Location/Status: ??SPDIMAM/REG CLI ? Mnemonic/Ordering Site: ??DIGSC/SPMAM Ordering Physician: ??JONN ANDREWS MD [facility] Screening Digital - 10/19/22 - 0803 EXAM: Rob Screening Digital EXAM DATE AND TIME: 10/19/2022 8:04 AM HISTORY: ??Screening. COMPARISON: ??10/15/21, 06/28/19, 06/20/18, 08/31/16 TECHNIQUE: CC and MLO views of both breasts were obtained using full field digital mammography. Bilateral digital breast tomosynthesis was performed in the MLO projection. Computer aided detection with [employer] 7.2-H and [employer] 3D 3.1 was employed. TISSUE DENSITY: b. There are scattered areas of fibroglandular density. FINDINGS: No suspicious masses, grouped microcalcifications, or areas of architectural distortion are seen. The skin and vascularity are unremarkable. IMPRESSION: Stable mammographic appearance of the breasts. ??No evidence of malignancy is seen. A negative mammogram in the presence of a clinically suspicious palpable abnormality does not preclude the possibility of malignancy or alter the indications for biopsy. BI-RADS: ??Category 1: Negative RECOMMENDATION(S): 1: Routine screening mammogram BILATERAL in 1 year. 07737, 23374 3341F, 7025F Dictating Physician: ??DOMITILA FREITAS MD Electronically Signed by: ??DOMITILA FREITAS MD Dic Date/Time: ??10/19/22 1623 Sign date/Time: ??10/19/22 1623 Procedure Note Domitila Freitas MD - 06/15/2023 [facility] Diagnostic Imaging Department [address] [place] [id number] Patient: SHAJI HOPE /Age/Sex: 1960 - 62 -F Unit#: [id number] Location/Status: SPDIMAM/REG CLI Mnemonic/Ordering Site: [facility] Ordering Physician: JONN ANDREWS MD [facility] Screening Digital - 10/19/22802 EXAM: [facility] Screening Digital EXAM DATE AND TIME: 10/19/2022 8:04 AM HISTORY: Screening. COMPARISON: 10/15/21, 06/28/19, 06/20/18, 08/31/16 TECHNIQUE: CC and MLO views of both breasts were obtained using fullfield digital mammography. Bilateral digital breast tomosynthesis was performedin the MLO projection. Computer aided detection with [employer] 7.2-H and[employer] 3D 3.1 was employed. TISSUE DENSITY: b. There are scattered areas of fibroglandular density. FINDINGS: No suspicious masses, grouped microcalcifications, or areas ofarchitectural distortion are seen. The skin and vascularity are unremarkable. IMPRESSION: Stable mammographic appearance of the breasts. No evidence of malignancyis seen. A negative mammogram in the presence of a clinically suspicious palpable abnormality does not preclude the possibility of malignancy or alter the indications for biopsy. BI-RADS: Category 1: Negative RECOMMENDATION(S): 1: Routine screening mammogram BILATERAL in 1 year. 37432, 50070 3341F, 7025F Dictating Physician: DOMITILA FREITAS MD Electronically Signed by: DOMITILA FREITAS MD Dic Date/Time: 10/19/221622 Sign date/Time: 10/19/221622 Jonn Andrews MD IMG BI PROCEDURES from Last 3 Months or Most Recently Relevant to Health Maintenance
[2024-06-10 12:32] LABS: Alanine Aminotransferase 21 U/L (0-31); Albumin Level 4.3 g/dL (3.5-5.0); Alkaline Phosphatase 72 U/L (39-117); Anion Gap 11 (12-20); Aspartate Amino Transferase 26 U/L (5-31); Bilirubin Total 0.8 mg/dL (0.0-1.0); Blood Urea Nitrogen 15 mg/dL (9-16); Calcium 9.7 mg/dL (8.4-10.2); Carbon Dioxide 25 mmol/L (22-29); Chloride 110 mmol/L (96-108); Estimated Glomerular Filt Rate > 60; Glucose Fasting 81 mg/dL (60-99); Potassium 4.2 mmol/L (3.3-5.1); Sodium 142 mmol/L (135-145); Total Protein 7.3 g/dL (6.5-8.0)
[2024-06-10 12:37] LABS: Troponin-I High Sensitivity < 2.7 ng/L (<3.5-17.0)
== END 2024-06-10 09:38 | disposition home or self-care (01) ==
LOC: HO.HMGCLDS 09:37
PROVIDERS: PCP Internal Medicine; Visit Provider Nurse Practitioner Family
DX: M54.9 Dorsalgia, unspecified (principal); M79.601 Pain in right arm; R68.84 Jaw pain; R07.9 Chest pain, unspecified
CPT/HCPCS: 36415; 80053; 84484; 93005; 99212

== ENCOUNTER 2024-06-10 09:37 | Outpatient (AMB) | payer MEDICARE, SELFPAY ==
[2024-06-10 09:38] VITALS: BP 116/74; PULSE 90; TEMP 36.9; O2SAT 98
--- NOTE | 2024-06-10 09:38 | AM.OFFWIN_ITS ---
Intake Vital Signs 06/10/24 09:38 Height 5 ft 2 in BP 116/74 Blood Pressure Location Rt brachial Position Sitting Pulse 90 Pulse Source Pulse Oximeter Temp 98.4 F Temp Source Oral Pulse Oximetry (%) 98 Oxygen Delivery Method Room Air Intake Visit Reasons: EP- Pain mid back, mid chest, Gallbladder? 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 The pain started approximately two weeks ago and is most prominent right between the shoulder blades, moving to different spots in the anterior chest. The pain is primarily noted midday, is not exacerbated by indigestion or acid reflux symptoms, and lacks association with shortness of breath, fever, chills, nausea, or vomiting. The patient also reports pain in the R shoulder & upper arm which occurs during sleep and is relieved by repositioning the arm above her head. She has a history of carpal tunnel syndrome and a recent dental infection for which antibiotics were prescribed. she c/o jaw pain and low back pain all of which are new since the onset of her chest/back pain. The patient's gastrointestinal symptoms, such as excessive gas, are noted to possibly correlate with certain foods like nuts which she has reduced intake of. Notable family medical history includes siblings with gallbladder removal and cardiac issues. labs showed normal liver function tests and bilirubin levels 09/2023 Reports EKG testing in the past WNL. Denies any change in urination or bowel habits. 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 No chest pain on exertion. Sx are self limiting This is first medical intervention for her complaints. The pt thinks she has gallbladder disease after looking up sx online but isnt quite sure. Social History - The patient maintains a healthy diet, avoiding junk food, though consumes high-fat yogurt and nuts. - She remains active and capable of asce nding stairs without respiratory distress. - Family history includes cardiovascular issues and gallbladder removal. Physical Exam General: Awake, alert. No apparent distress Eyes: Sclera and conjunctiva clear bilaterally Cardiovascular: Regular rate and rhythm EKG done today NSR Respiratory: Clear to auscultation bilaterally, no shortness of breath noted Chest: Equal expansion, no costochondral pain Back: No spinal tenderness. No CVAT Abd: soft, nontender, no rebound, negative murphys sign Ext: BLE w/o edema Results - Tests: EKG results were normal. CMP & Trop ordered -- WNL Stress test ordered Discussion Notes I discussed with the patient that her symptoms of jaw, arm, and back pain could be red flags for cardiac concerns rather than a gallbladder issue, as these symptoms are more indicative of cardiac problems and not typically associated with the gallbladder. I recommended a referral for a stress test to ensure cardiac health & labs today. If trop + she will need to go to the ED. I reassured the patient with the normal EKG findings but emphasized the importance of further cardiac evaluation given her family history of cardiovascular disease. I also discussed the importance of monitoring for new symptoms like vomiting, sweating, or shortness of breath, which could necessitate immediate hospital evaluation. A message to her PCP was sent w/ heads up, next appt September 2024, ? need for sooner appt. Emphazied edu regarding acute coronary sx in women and when to seek care. Aware if this is gallbladder, a more in depth work up would be required by PCP. Patient Instructions - Schedule a stress test as discussed. - Monitor symptoms closely and seek imme diate medical attention if experiencing vomiting, sweating, or significant chest pain. - Maintain a healthy diet and try to cor relate any gastrointestinal symptoms with specific food intake. - Utilize the patient portal for accessi ng lab and EKG results. Plan - Workup for potential cardiac etiology of back and chest pain, including scheduling a stress test & labs - Continued monitoring and laboratory te sts to evaluate liver function related to possible gallbladder disease. Patient was informed and verbally consented to the use of an ambient scribe for clinic note documentation during this visit. At 1310 CMP and troponin resulted. WNL. Message sent to patient to fu with stress test and schedule fu with PCP to review concerns for gallbladder disease. [facility] Medical History (Updated 06/10/24 @ 10:32 by Dot Najera, [facility]) Breast cancer screening by mammogram Carpal tunnel syndrome on both sides Cervical cancer Family history of Alzheimer's disease GERD (gastroesophageal reflux disease) Numbness and tingling in both hands Surgical History Ovarian cyst S/P breast lumpectomy Wrist fracture, left Family History Mother Dementia, Onset Age: 70 Father Heart valve replaced Sister No problems noted. Brother No problems noted. Brother No problems noted. Brother CAD (coronary artery disease) Daughter No problems noted. Maternal Grandmother Dementia Maternal Grandfather Heart attack Maternal Aunt CVA (cerebral vascular accident) Maternal Uncle CAD (coronary artery disease) Other Colon cancer Uterine cancer Social History Housing: House Alcohol intake: current Comment: 3-4 x a week 1-2 glasses Patient Tobacco Use Status: Former Tobacco user Tobacco use type: Cigarette Years Smoked: quit 24 years old e-Cigarette/Vaping Use: Never Used Second Hand Smoke Exposure: No service: No Current occupational status: employed Cognitive needs: No Hearing needs: No Vision needs: No Physical Exam Vital Signs: Last Vital Signs Temp 98.4 F 06/10/24 09:38 Pulse 90 06/10/24 09:38 BP 116/74 06/10/24 09:38 Pulse Ox 98 06/10/24 09:38 Oxygen Delivery Method Room Air 06/10/24 09:38 Office Procedures EKG 44081-Tzvwdhydlhqwmlumn, Complete Results Reviewed Results Reviewed: RUN: 06/10/24 1236 PAGE 1 [facility] [address] [place] [phone] Tableau Report Developer: Jonn Diallo M.D. Specimen Inquiry Name: Jany Lawson Age/Sex: 64/F : 1960 Unit#: [id number] Attend Dr: Dot [facility]era [facility] Re[facility]10/24 Status: REG REF Location: [facility] Disch: SPEC : [id number] SHAYAN: 06/10/24 STATUS: COMP REQ : [id number] RECD: 06/10/[address]: Dot Najera [facility] COMP: 06/10/24 ENTERED: 06/10/[address]: Roz Sellers MD ORDERED: CMP Fast Test Result Flag Reference Sodium 142 135-145 mmol/L Potassium 4.2 3.3-5.1 mmol/L CL 110 H 96-108 mmol/L CO2 25 22-29 mmol/L Gap 11 L 12-20 BUN 15 9-16 mg/dL Creat 0.67 0.5-1.4 mg/dL eGFR > 60 Chronic Kidney Disease: Estimated GFR < 60 mL/min/1.73m2 Severe Kidney Disease: Estimated GFR < 15 mL/min/1.73m2 FBS 81 60-99 mg/dL CA 9.7 8.4-10.2 mg/dL Total Bili 0.8 0.0-1.0 mg/dL AST (GOT) 26 5-31 U/L ALT (GPT) 21 0-31 U/L Protein, Total 7.3 6.5-8.0 g/dL Alb 4.3 3.5-5.0 g/dL Alk Phos 72 39-117 U/L RUN: 06/10/24 1245 PAGE 1 [facility] [address] [place] [phone] Tableau Report Developer: Jonn Diallo M.D. Specimen Inquiry Name: Jany Lawson Age/Sex: 64/F : 1960 [id number] Unit#: [id number] Attend Dr: Dot Najera [facility] Re06/10/24 Status: REG REF Location: [facility] Disch: SPEC : [id number] SHAYAN: 06/10/24-1036 STATUS: COMP REQ : [id number] RECD: 06/10/24-[address] [facility] [address]: Dot Najera [facility] COMP: 06/10/24-1237 ENTERED: 06/10/24-[address]: Roz Sellers MD ORDERED: Troponin-I HS Test Result Flag Reference Troponin-I HS < 2.7 <3.5-17.0 ng/L [facility] high sensitivity Troponin-I results should be used in conjunction with other diagnostic information such as ECG, clinical observations and information, and patient symptoms to aid in the diagnosis of [place]. END OF REPORT END OF REPORT Assessment & Plan Assessment & Plan (1) Chest pain: Code(s): R07.9 - Chest pain, unspecified Qualifiers: Chest pain type: unspecified Qualified Code(s): R07.9 - Chest pain, unspecified (2) Jaw pain: Code(s): R68.84 - Jaw pain (3) Right arm pain: Code(s): M79.601 - Pain in right arm (4) Upper back pain: Code(s): M54.9 - Dorsalgia, unspecified Plan . Orders: Orders Comprehensive Wiseman. Panel Fast Today M54.9 - Dorsalgia, unspecified, M79.601 - Pain in right arm, R07.9 - Chest pain, unspecified, R68.84 - Jaw pain CA stress test Today M54.9 - Dorsalgia, unspecified, M79.601 - Pain in right arm, R07.9 - Chest pain, unspecified, R68.84 - Jaw pain Troponin-I High Sensitivity Today M54.9 - Dorsalgia, unspecified, M79.601 - Pain in right arm, R07.9 - Chest pain, unspecified, R68.84 - Jaw pain Coding Level of Care Code Est Pt Level 5 (06514) Diagnoses Chest pain, unspecified type R07.9 Chest pain type: unspecified Jaw pain R68.84 Right arm pain M79.601 Upper back pain M54.9 CPT Codes EKG - CPT: 64610-[id number], Complete ([id number]) Time Spent (min) 45
== END 2024-06-10 10:34 | disposition home or self-care (01) ==
PROVIDERS: PCP Internal Medicine; Visit Provider Nurse Practitioner Family
DX: R07.9 Chest pain, unspecified (principal); R68.84 Jaw pain; M79.601 Pain in right arm; M54.9 Dorsalgia, unspecified

== ENCOUNTER → 2024-06-15 08:18 | Outpatient (BNVA) | payer MEDICARE, SELFPAY | PROVIDERS: PCP Internal Medicine | DX: R07.9 Chest pain, unspecified (principal); R73.01 Impaired fasting glucose; K21.9 Gastro-esophageal reflux disease without esophagitis; E78.00 Pure hypercholesterolemia, unspecified | CPT/HCPCS: 99212 ==

== ENCOUNTER → 2024-06-29 07:58 | Outpatient (REF) | payer MEDICARE, SELFPAY ==
--- NOTE | 2024-06-29 08:01 | CA_ITS ---
Acquisition Time: 2024-06-29 08:08:41 Total Exercise Time: 00:05:08 Test Indications: CHEST PAIN Medications: NONE Protocol: FLORENTINO Max HR: 146 BPM 94% of Pred: 155 BPM Max BP: 124/68 mmHG Max Work Load: 7.0 METS Exercise Stress Test with exercise 5 mins 8 secs of Florentino Protocol, achieving 94% MPHR, with rerpots of mild SOB, no chest discomfort, without any arrythmias, with normotensive response to exercise. Without EKG changes meeting criteria for ischemia. In recovery, breathing returned to baseline. Test reviewed with Dr. Pizano. Referred By: Dot Najera Electronically Signed By: Yobani Faria
--- OUTSIDE RECORDS SUMMARY | 2024-06-29 08:01 | XMS_ITS | Clinical Summary ---
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 Name Role Phone Unavailable Primary Care Provider Unavailabl e Social History Tobacco Use Types Packs/Day Years Used Date Smoking Tobacco: Never Assessed Comments Unknown Sex and Gender Information Value Date Recorded Sex Assigned at Not on file Legal Sex Female 10:09 PM EST Gender Identity Not on file Sexual Orientation Not on file Plan of Treatment Health Maintenance Due Date Last Done Comments DTaP,Tdap,and Td Vaccines (1 - Tdap) 1978 Cervical Cancer Screening: Pap Smear 1980 Pneumococcal Vaccine: 50+ Years (1 of 1 - PCV) 2009 Zoster Vaccines (1 of 2) 2009 Colorectal Cancer Screening: Colonoscopy 04/11/2022 Depression Screening 04/11/2022 Hepatitis C Screening 04/11/2022 Osteoporosis Screening (Bone Density Screening) 04/11/2022 Social Influencers of Health Screening 04/11/2022 COVID-19 Vaccine ( - 2023- season) 2024 Influenza Vaccine (#1) 2024 Falls Risk Assessment 2024 Breast Cancer Screening 10/19/2024 10/20/19 23, [...] patient's age to complete this topic Meningococcal B Vacine Aged Out No lo nger eligible based on patient's age to complete [...] Procedure Name Priority Date/Time Associated Diagnosis Comments [facility] SCREENING DIGITAL Routine 10/19/2022 4:23 PM EDT Encounter for screening mammogram for malignant neoplasm of breast from Last 3 Months or Most Recently Relevant to Health Maintenance Results * [facility] SCREENING DIGITAL (10/19/2022 4:23 PM EDT) Anatomical Region Laterality Modality Mammography 10/19/2022 7:31 AM EDT Narrative 10/19/2022 4:23 PM EDT [facility] Diagnostic Imaging Department [address] [place] [id number] Patient: ??SHAJI HOPE ?/Age/Sex: 1960 - 62 - F Unit#: ??[id number] ? Location/Status: ??SPDIMAM/REG CLI ? Mnemonic/Ordering Site: ??DIGSC/SPMAM Ordering Physician: ??JONN ANDREWS MD Rob Screening Digital - 10/19/22 - 802 EXAM: Rob Screening Digital EXAM DATE AND TIME: 10/19/2022 8:04 AM HISTORY: ??Screening. COMPARISON: ??10/15/21, 06/28/19, 06/20/18, 08/31/16 TECHNIQUE: CC and MLO views of both breasts were obtained using full field digital mammography. Bilateral digital breast tomosynthesis was performed in the MLO projection. Computer aided detection with [employer] 7.2-H and [employer] 3D 3.1 was employed. TISSUE DENSITY: b. [...] Routine screening mammogram BILATERAL in 1 year. 74996, 12464 3341F, 7025F Dictating Physician: ??DOMITILA FREITAS MD Electronically Signed by: ??DOMITILA FREITAS MD Dic Date/Time: ??10/19/22 1623 Sign date/Time: ??10/19/22 1623 Procedure Note Domitila Freitas MD - 06/15/2023 [facility] Diagnostic Imaging Department [address] [place] [address] Patient: SHAJI HOPE /Age/Sex: 1960 - 62 -F Unit#: [id number] Location/Status: SPDIMAM/REG CLI Mnemonic/Ordering Site: [facility] Ordering Physician: JONN ANDREWS MD [facility] Screening Digital - 10/19/22 - 802 EXAM: [facility] Screening Digital EXAM DATE AND TIME: 10/19/2022 8:04 AM HISTORY: Screening. COMPARISON: 10/15/21, 06/28/19, 06/20/18, 08/31/16 TECHNIQUE: CC and MLO views of both breasts were obtained using fullfield digital mammography. Bilateral digital breast tomosynthesis was performedin the MLO projection. Computer aided detection with [employer] 7.2-H and[employer] 3D 3.1 was employed. TISSUE DENSITY: b. [...] Routine screening mammogram BILATERAL in 1 year. 68768, 68731 3341F, 7025F Dictating Physician: DOMITILA FREITAS MD Electronically Signed by: DOMITILA FREITAS MD Dic Date/Time: 10/19/221622 Sign date/Time: 06/12/23 1623 us Jonn Andrews MD IMG BI PROCEDURES Final Result from Last 3 Months or Most Recently Relevant to Health Maintenance
== END ==
LOC: HO.CARD 07:58
PROVIDERS: PCP Internal Medicine; Visit Provider Nurse Practitioner Family
DX: R07.9 Chest pain, unspecified (principal); R68.84 Jaw pain; M79.601 Pain in right arm; M54.9 Dorsalgia, unspecified
CPT/HCPCS: 93017

== ENCOUNTER → 2024-06-29 08:01 | Outpatient (BNV) | payer MEDICARE, SELFPAY | PROVIDERS: PCP Internal Medicine | DX: R06.02 Shortness of breath (principal) | CPT/HCPCS: 93016; 93018 ==

== ENCOUNTER 2024-09-09 09:49 | Outpatient (REF) | payer MEDICARE, SELFPAY ==
--- OUTSIDE RECORDS SUMMARY | 2024-09-09 09:52 | XMS_ITS | Clinical Summary ---
Author Organization [facility] Address [address] [place] [address] Phone Care Team Providers Care Letter Of Credit Document Examiner Name Role Phone Roz Sellers MD Primary Care Provider [phone] Allergies Active Allergy Reactions Criticality Noted Date Comments Ampicillin 09/26/2019 Medications ASCORBATE CALCIUM, VITAMIN C, ORAL Take by mouth. Active cholecalciferol , vitamin D3, 50 mcg (2,000 unit) tablet,chewable Chew. Acti ve coenzyme Q-10 30 mg capsule Take 1 capsule (30 mg total) by mouth 1 (one) time each day. Active ginkgo biloba leaf extract 40 mg capsule Take by mouth. Active multivit-min/fe rrous fumarate (MULTI VITAMIN ORAL) Take by mouth. Active Encounters Date Type Department Care Team Description 09/08/2024 8:25 AM EDT - 09/08/2024 11:59 PM EDT Hospital Encounter [facility] Ultrasound [address] [place] [phone] Breast asymmetry Discharge Disposition: Home or Self Care 09/08/2024 7:53 AM EDT - 09/08/2024 11:59 PM EDT [facility]counter [facility] at [address] [phone] Breast asymmetry Discharge Disposition: Home or Self Care 09/04/2024 Telephone Gastroenterology - [address] [phone] Meghana Wang MD 08/02/2024 7:49 AM EDT - 08/02/2024 11:59 PM EDT [facility]counter [facility] [address] [phone] Encounter for screening mammogram for breast cancer Discharge Disposition: Home or Self Care from Last 3 Months Surgical History Surgery Date Site/Laterality Comments BREAST MASS EXCISION BREAST LUMPECTOMY Family History Medical History Relation Name Comments Breast cancer Mother's Sister Relation Name Status Comments Mother's Sister Alive Social History Tobacco Use Types Packs/Day Years Used Date Smoking Tobacco: Never Assessed Comments No Sex and Gender Information Value Date Recorded Sex Assigned at Not on file Legal Sex Female 10:09 PM EST Gender Identity Not on file Sexual Orientation Not on file Obstetrics History Para Term AB IAB SAB Ectopic Multiple Livin g Live Births 3 Last Filed Vital Signs Vital Sign Reading Time Taken Comments Blood Pressure - - Pulse - - Temperature - - Respiratory Rate - - Oxygen Saturation - - Inhaled Oxygen Concentration - - Weight 71.7 kg (158 lb) 08/02/2024 7:56 AM EDT Height 157.5 cm (5' 2 ) 08/02/2024 7:56 AM EDT Body Mass Index 28.9 08/02/2024 7:56 AM EDT Plan of Treatment Upcoming Encounters Date Type Department Care Team (Late st Contact Info) Description 03/13/2025 8:00 AM EST Appointment [facility] at [address] [phone] Health Maintenance Due Date Last Done Comments DTaP,Tdap,and Td Vaccines (1 - Tdap) 1978 Cervical Cancer Screening: Pap Smear 1980 Pneumococcal Vaccine: 50+ Years (1 of 1 - PCV) 2009 Zoster Vaccines (1 of 2) 2009 Colorectal Cancer Screening: Colonoscopy 04/11/2022 Depression Screening 04/11/2022 Hepatitis C Screening 04/11/2022 Medicare Annual Wellness Visit 04/11/2022 Osteoporosis Screening (Bone Density Screening) 04/11/2022 Social Influencers of Health Screening 04/11/2022 COVID-19 Vaccine ( season) 2024 Falls Risk Assessment 2024 Influenza Vaccine (Season Ended) 2025 Breast Cancer Screening 09/08/2026 09/09/19, 08/02/2024, 10/19/2022, Additional history exists RSV Immunization Adult Patients (1 - 1-dose 75+ series) 2034 HIB [...] age to complete this topic Meningococcal B Vaccine Aged Out No l onger eligible based on patient's age to complete [...] Procedure Name Priority Date/Time Associated Diagnosis Comments US BREAST LIMITED LEFT Routine 09/08/2024 8:58 AM EDT Breast asymmetry MG MAMMO DIAGNOSTIC ADDL VIEWS LEFT Routine 09/08/2024 8:55 AM EDT Breast asymmetry MG MAMMO DIGITAL SCREENING W ANJUM BILAT Routine 08/02/2024 8:10 AM EDT Encounter for screening mammogram for breast cancer from Last 3 Months Results * US Breast Limited Left (09/08/2024 8:58 AM EDT) Anatomical Region Laterality Modality Breast Left Ultrasound 09/08/2024 8:20 AM EDT Impressions 09/08/2024 9:00 AM EDT Left breast mass, likely a small cyst. ??Recommend 6 month follow-up with left diagnostic mammogram and ultrasound. BI-RADS CATEGORY: Mammography: 3 - PROBABLY BENIGN Ultrasound: 3 - PROBABLY BENIGN RECOMMENDATIONS: Short Interval Follow-up is recommended for the left breast in 6 months. Ultrasound of the left breast is recommended in 6 months. Mammo Location: [facility], [address] [place] [address], [id number], . -------- FINAL REPORT -------- Dictated By: Lucila Bates Dictated Date: 09/08/2024 08:20 ET Assigned Physician: Lucila Bates Reviewed and Electronically Signed By: Lucila Bates Signed Date: 09/08/2024 09:00 ET Workstation ID: [id number] Transcribed By: Self Edit Transcribed Date: 09/08/2024 08:29 ET Narrative 09/08/2024 9:00 AM EDT CLINICAL: 64 years old, Female, additional evaluation from screening for focal asymmetry in the left breast. COMPARISON: 08/02/2024, 10/19/2022, 10/15/2021 and 06/28/2019 ?? FINDINGS: MAMMOGRAPHY TECHNIQUE: Unilateral left MLO and CC views spot compression and 90 degree lateral were obtained digitally with 3-D mammogram (digital breast tomosynthesis). Computer-aided detection was utilized in evaluation of this exam (CAD). There is a 4 mm oval circumscribed mass in the left lower outer breast at middle depth. ??Targeted ultrasound is recommended for further evaluation. BREAST DENSITY: B - There are scattered areas of fibroglandular density. ULTRASOUND TECHNIQUE: Targeted ultrasound evaluation of the left breast was performed. There is a 4 mm hypoechoic mass 4-5 o'clock 4 cm from the nipple. ??This is too small to characterize, however likely represents a small cyst. ?? Procedure Note Lucila Bates MD - 09/08/2024 CLINICAL: 64 years old, Female, additional evaluation from screening forfocal asymmetry in the left breast. COMPARISON: 08/02/2024, 10/19/2022, 10/15/2021 and 06/28/2019 FINDINGS: MAMMOGRAPHY TECHNIQUE: Unilateral left MLO and CC views spot compression and 90 degreelateral were obtained digitally with 3-D mammogram (digital breasttomosynthesis). Computer-aided detection was utilized in evaluation ofthis exam (CAD). There is a 4 mm oval circumscribed mass in the left lower outer breast atmiddle depth. Targeted ultrasound is recommended for furtherevaluation. BREAST DENSITY: B - There are scattered areas of fibroglandular density. ULTRASOUND TECHNIQUE: Targeted ultrasound evaluation of the left breast wasperformed. There is a 4 mm hypoechoic mass 4-5 o'clock 4 cm from the nipple. This istoo small to characterize, however likely represents a small cyst. IMPRESSION: Left breast mass, likely a small cyst. Recommend 6 month follow-up withleft diagnostic mammogram and ultrasound. BI-RADS CATEGORY: Mammography: 3 - PROBABLY BENIGN Ultrasound: 3 - PROBABLY BENIGN RECOMMENDATIONS: Short Interval Follow-up is recommended for the left breast in 6 months.Ultrasound of the left breast is recommended in 6 months. Mammo Location: [facility], [address] [place] [address], [id number], . -------- FINAL REPORT -------- Dictated By: Lucila Bates Dictated Date: 09/08/2024 08:20 ET Assigned Physician: Lucila Bates Reviewed and Electronically Signed By: Lucila Bates Signed Date: 09/08/2024 09:00 ET Workstation ID: [id number] Transcribed By: Self Edit Transcribed Date: 09/08/2024 08:29 ET us Roz Sellers MD IMG US PROCEDURES Final Result * MG Mammo Diagnostic Addl Views Left (09/08/2024 8:55 AM EDT) Anatomical Region Laterality Modality Breast Left Mammography 09/08/2024 8:20 AM EDT Impressions 09/08/2024 9:00 AM EDT Left breast mass, likely a small cyst. ??Recommend 6 month follow-up with left diagnostic mammogram and ultrasound. BI-RADS CATEGORY: Mammography: 3 - PROBABLY BENIGN Ultrasound: 3 - PROBABLY BENIGN RECOMMENDATIONS: Short Interval Follow-up is recommended for the left breast in 6 months. Ultrasound of the left breast is recommended in 6 months. Mammo Location: [facility], [address] [place] [address], [id number], . -------- FINAL REPORT -------- Dictated By: Lucila Bates Dictated Date: 09/08/2024 08:20 ET Assigned Physician: Lucila Bates Reviewed and Electronically Signed By: Lucila Bates Signed Date: 09/08/2024 09:00 ET Workstation ID: [id number] Transcribed By: Self Edit Transcribed Date: 09/08/2024 08:29 ET Narrative 09/08/2024 9:00 AM EDT CLINICAL: 64 years old, Female, additional evaluation from screening for focal asymmetry in the left breast. COMPARISON: 08/02/2024, 10/19/2022, 10/15/2021 and 06/28/2019 ?? FINDINGS: MAMMOGRAPHY TECHNIQUE: Unilateral left MLO and CC views spot compression and 90 degree lateral were obtained digitally with 3-D mammogram (digital breast tomosynthesis). Computer-aided detection was utilized in evaluation of this exam (CAD). There is a 4 mm oval circumscribed mass in the left lower outer breast at middle depth. ??Targeted ultrasound is recommended for further evaluation. BREAST DENSITY: B - There are scattered areas of fibroglandular density. ULTRASOUND TECHNIQUE: Targeted ultrasound evaluation of the left breast was performed. There is a 4 mm hypoechoic mass 4-5 o'clock 4 cm from the nipple. ??This is too small to characterize, however likely represents a small cyst. ?? Procedure Note Lucila Bates MD - 09/08/2024 CLINICAL: 64 years old, Female, additional evaluation from screening forfocal asymmetry in the left breast. COMPARISON: 08/02/2024, 10/19/2022, 10/15/2021 and 06/28/2019 FINDINGS: MAMMOGRAPHY TECHNIQUE: Unilateral left MLO and CC views spot compression and 90 degreelateral were obtained digitally with 3-D mammogram (digital breasttomosynthesis). Computer-aided detection was utilized in evaluation ofthis exam (CAD). There is a 4 mm oval circumscribed mass in the left lower outer breast atmiddle depth. Targeted ultrasound is recommended for furtherevaluation. BREAST DENSITY: B - There are scattered areas of fibroglandular density. ULTRASOUND TECHNIQUE: Targeted ultrasound evaluation of the left breast wasperformed. There is a 4 mm hypoechoic mass 4-5 o'clock 4 cm from the nipple. This istoo small to characterize, however likely represents a small cyst. IMPRESSION: Left breast mass, likely a small cyst. Recommend 6 month follow-up withleft diagnostic mammogram and ultrasound. BI-RADS CATEGORY: Mammography: 3 - PROBABLY BENIGN Ultrasound: 3 - PROBABLY BENIGN RECOMMENDATIONS: Short Interval Follow-up is recommended for the left breast in 6 months.Ultrasound of the left breast is recommended in 6 months. Mammo Location: [facility], [address] [place] [address], [id number], . -------- FINAL REPORT -------- Dictated By: Lucila Bates Dictated Date: 09/08/2024 08:20 ET Assigned Physician: Lucila Bates Reviewed and Electronically Signed By: Lucila Bates Signed Date: 09/08/2024 09:00 ET Workstation ID: [id number] Transcribed By: Self Edit Transcribed Date: 09/08/2024 08:29 ET Carisha Sellers MD IMG BI PROCEDURES Final Result * (ABNORMAL) MG Mammo Digital Screening w Anjum bilat (08/02/2024 8:10 AM EDT) Anatomical Region Laterality Modality Breast Bilateral Mammography 08/08/2024 7:48 AM EDT Impressions 08/08/2024 7:54 AM EDT Focal asymmetry in the left breast. ??Additional spot compression views and 90 degree lateral recommended. ?? BI-RADS CATEGORY: 0 - INCOMPLETE - NEED ADDITIONAL IMAGING EVALUATION RECOMMENDATION: Additional left breast imaging recommended. Mammo Location: [facility], [address] [place] [address], [address], . -------- FINAL REPORT -------- Dictated By: Lucila Bates Dictated Date: 08/08/2024 07:48 ET Assigned Physician: Lucila Bates Reviewed and Electronically Signed By: Lucila Bates Signed Date: 08/08/2024 07:54 ET Workstation ID: [id number] Transcribed By: Self Edit Transcribed Date: 08/08/2024 07:48 ET Narrative 08/08/2024 7:54 AM EDT CLINICAL: 64 years old, Female, routine annual exam. COMPARISON: 10/19/2022, 10/15/2021, 06/28/2019, 06/20/2018 and 06/21/2018 TECHNIQUE: Bilateral MLO and CC views were obtained digitally with 3-D mammogram (digital breast tomosynthesis). Computer-aided detection was utilized in evaluation of this exam (CAD). FINDINGS: There is a focal asymmetry in the lower outer left breast at middle depth. ??There is no evidence of suspicious mass or architectural distortion in the right breast. ??No worrisome calcifications are evident. BREAST DENSITY: B - There are scattered areas of fibroglandular density. Procedure Note Lucila Bates MD - 08/08/2024 CLINICAL: 64 years old, Female, routine annual exam. COMPARISON: 10/19/2022, 10/15/2021, 06/28/2019, 06/20/2018 and 06/21/2018 TECHNIQUE: Bilateral MLO and CC views were obtained digitally with 3-Dmammogram (digital breast tomosynthesis). Computer-aided detection wasutilized in evaluation of this exam (CAD). FINDINGS: There is a focal asymmetry in the lower outer left breast at middle depth.There is no evidence of suspicious mass or architectural distortion inthe right breast. No worrisome calcifications are evident. BREAST DENSITY: B - There are scattered areas of fibroglandular density. IMPRESSION: Focal asymmetry in the left breast. Additional spot compression views and90 degree lateral recommended. BI-RADS CATEGORY: 0 - INCOMPLETE - NEED ADDITIONAL IMAGING EVALUATION RECOMMENDATION: Additional left breast imaging recommended. Mammo Location: [facility], [address] [place] [address], [address], . -------- FINAL REPORT -------- Dictated By: Lucila Bates Dictated Date: 08/08/2024 07:48 ET Assigned Physician: Lucila Bates Reviewed and Electronically Signed By: Lucila Bates Signed Date: 08/08/2024 07:54 ET Workstation ID: [id number] Transcribed By: Self Edit Transcribed Date: 08/08/2024 07:48 ET us Self Referral Sppl IMG BI PROCEDURES Final Resul t from Last 3 Months Insurance MEDICARE [facility] [[email or web address]] Care Teams Letter Of Credit Document Examiner Relationship Specialty Start Date End Date Roz Sellers MD [address] [place] [phone] PCP - General Internal Medicine 09/08/24
--- OUTSIDE RECORDS SUMMARY | 2024-09-09 09:52 | XMS_ITS | Encounter Summary ---
Author Organization [facility] Address [address] [place] [address] Care Team Providers Care Handle And Vent Machine Operator Name Role Phone Roz Sellers MD Primary Care Provider [phone] Reason for Referral * Imaging (Routine) - Authorized Specialty Diagnoses / Procedures Referred By Contac t Referred To Contact Radiology Diagnoses Breast asymmetry Procedures US Breast Limited Left Roz Sellers MD [address] [place] [address] Phone: tel: [facility] Referral ID Status Reason Start Date Expiration Date V isits Requested Visits Authorized [id number] Authorized 09/08/2024 09/08/2025 1 1 Reason for Visit * Imaging (Routine) - Authorized Specialty Diagnoses / Procedures Referred By Contac t Referred To Contact Radiology Diagnoses Breast asymmetry Procedures US Breast Limited Left Roz Sellers MD [address] [place] [address] Phone: tel: [facility] Referral ID Status Reason Start Date Expiration Date V isits Requested Visits Authorized [id number] Authorized 09/08/2024 09/08/2025 1 1 Encounter Details Date Type Department Care Team (Latest Contact Info) Description 09/08/2024 8:25 AM EDT - 09/08/2024 11:59 PM EDT Hospital Encounter [facility] Ultrasound [address] [place] [phone] Breast asymmetry Discharge Disposition: Home or Self Care Social History Tobacco Use Types Packs/Day Years Used Date Smoking Tobacco: Never Assessed Comments No Sex and Gender Information Value Date Recorded Sex Assigned at Not on file Legal Sex Female 10:09 PM EST Gender Identity Not on file Sexual Orientation Not on file documented as of this encounter Medications at Time of Discharge ASCORBATE CALCIUM, VITAMIN C, ORAL Take by mouth. cholecalciferol, vitamin D3, 50 mcg (2,000 unit) tablet,chewable Chew. coenzyme Q-10 30 mg capsule Take 1 capsule (30 mg total) by mouth 1 (one) time each day. ginkgo biloba leaf extract 40 mg capsule Take by mouth. multivit-min/ferr ous fumarate (MULTI VITAMIN ORAL) Take by mouth. documented as of this encounter Discharge Disposition Disposition Code Departure Means Destination Home or Self Care documented in this encounter Plan of Treatment Upcoming Encounters Date Type Department Care Team ([facility] st Contact Info) Description 03/13/2025 8:00 AM EST [facility]ointment [facility] [address] [phone] documented as of this encounter Procedures Procedure Name Priority Date/Time Associated Diagnosis Comments US BREAST LIMITED LEFT Routine 09/08/2024 8:58 AM EDT Breast asymmetry documented in this encounter Results * US Breast Limited Left (09/08/2024 [...] months. Mammo Location: [facility], [address] [place] [address], [address], . -------- FINAL REPORT -------- Dictated By: Lucila Bates Dictated Date: 09/08/2024 08:20 ET Assigned Physician: Lucila Bates Reviewed and Electronically Signed By: Lucila Bates Signed Date: 09/08/2024 09:00 ET Workstation ID: [id number] Transcribed By: Self Edit Transcribed Date: 09/08/2024 [...] months. Mammo Location: [facility], [address] [place] [address], [phone], . -------- FINAL REPORT -------- Dictated By: Lucila Bates Dictated Date: 09/08/2024 08:20 ET Assigned Physician: Lucila Bates Reviewed and Electronically Signed By: Lucila Bates Signed Date: 09/08/2024 09:00 ET Workstation ID: [id number] Transcribed By: Self Edit Transcribed Date: 09/08/2024 08:29 ET us Roz Sellers MD IMG US PROCEDURES Final Result documented in this encounter Visit Diagnoses Diagnosis Breast asymmetry documented in this encounter Care Teams Handle And Vent Machine Operator Relationship Specialty Start Date End Date Roz Sellers MD [address] [place] [address] PCP - General Internal Medicine 09/08/24 documented as of this encounter
--- OUTSIDE RECORDS SUMMARY | 2024-09-09 09:52 | XMS_ITS | Encounter Summary ---
Author Organization [facility] Address [address] [place] [address] Care Team Providers Care Memory Care Program Resident Name Role Phone Roz Sellers MD Primary Care Provider [phone] Reason for Referral * Imaging (Routine) - Pending Review Specialty Diagnoses / Procedures Referred By Contac t Referred To Contact Radiology Diagnoses Breast asymmetry Procedures MG Mammo Diagnostic Addl Views Left Roz Sellers MD [address] [place] [address] [address] [place] [address] [place] [address] Phone: tel: fax: [address] [address] Phone: tel: Referral ID Status Reason Start Date Expiration Date V isits Requested Visits Authorized [id number] Pending Review 08/08/2024 08/08/2025 1 1 Reason for Visit * Imaging (Routine) - Pending Review Specialty Diagnoses / Procedures Referred By Contac t Referred To Contact Radiology Diagnoses Breast asymmetry Procedures MG Mammo Diagnostic Addl Views Left Roz Sellers MD [address] [place] [address] [address] [place] [address] [place] [address] Phone: tel: fax: [address] [address] Phone: tel: Referral ID Status Reason Start Date Expiration Date V isits Requested Visits Authorized [id number] Pending Review 08/08/2024 08/08/2025 1 1 Encounter Details Date Type Department Care Team (Latest Contact Info) Description 09/08/2024 7:53 AM EDT - 09/08/2024 11:59 PM EDT [facility] [address] [phone] Breast asymmetry Discharge Disposition: Home or Self [...] AM EST Appointment [facility] at [address] [phone] documented as of this encounter Procedures Procedure Name Priority Date/Time Associated Diagnosis Comments MG MAMMO DIAGNOSTIC ADDL VIEWS LEFT Routine 09/08/2024 8:55 AM EDT Breast asymmetry documented in this encounter Results * MG Mammo Diagnostic Addl Views Left [...] months. Mammo Location: [facility], [address] [place] [address], [address], . -------- FINAL REPORT -------- Dictated By: Lucila Bates Dictated Date: 09/08/2024 08:20 ET Assigned Physician: Lucila Bates Reviewed and Electronically Signed By: Lucila Bates Signed Date: 09/08/2024 09:00 ET Workstation ID: [id number] Transcribed By: Self Edit Transcribed Date: 09/08/2024 [...] months. Mammo Location: [facility], [address] [place] [address], [address], . -------- FINAL REPORT -------- Dictated By: Lucila Bates Dictated Date: 09/08/2024 08:20 ET Assigned Physician: Lucila Bates Reviewed and Electronically Signed By: Lucila Bates Signed Date: 09/08/2024 09:00 ET Workstation ID: [id number] Transcribed By: Self Edit Transcribed Date: 09/08/2024 08:29 ET Roz Sellers MD IMG BI PROCEDURES Final Result documented in this encounter Visit Diagnoses Diagnosis Breast asymmetry documented in this encounter Care Teams Memory Care Program Resident Relationship Specialty Start Date End Date Roz Sellers MD [address] [place] [address] PCP - General Internal Medicine 09/08/24 documented as of this encounter
[2024-09-09 11:47] LABS: MANUAL DIFF FLAG NO
[2024-09-09 12:06] LABS: Basophils Absolute Auto 0.1 X10*3/uL (0.0-0.2); Basophils Percent Auto 0.9 % (0-2); Eosinophils Absolute Auto 0.3 X10*3/uL (0.0-0.4); Eosinophils Percent Auto 3.9 % (0-4); Hematocrit 41.6 % (37.0-47.0); Hemoglobin 14.2 g/dl (12.0-16.0); Imm Gran Abs Auto 0.02 X10*3/uL (0.00-0.03); Imm Gran Pct Auto 0.3 % (0.0-0.4); Lymphocytes Absolute Auto 1.9 X10*3/uL (1.2-4.9); Lymphocytes Percent Auto 29.9 % (20-40); Mean Corpuscular HGB Conc 34.1 g/dl (31.0-35.0); Mean Corpuscular Hemoglobin 30.8 pg (27.0-33.0); Mean Corpuscular Volume 90.2 fL (80.0-98.0); Mean Platelet Volume 10.4 fL (9.4-12.3); Monocytes Absolute Auto 0.4 X10*3/uL (0.1-1.2); Monocytes Percent Auto 6.3 % (2-11); Neutrophils Absolute Auto 3.8 x10*3/uL (2.0-8.3); Neutrophils Percent Auto 58.7 % (45-73); Platelet Count 293 X10*3/uL (160-400); Red Blood Count 4.61 X10*6/uL (4.20-5.50); Red Cell Distribution Width 12.4 % (11.0-16.0); White Blood Count 6.4 X10*3/uL (4.8-10.8)
[2024-09-09 12:07] LABS: Appearance Urine Clear; Color Urine Dark Yellow; Glucose Urine UA Negative (Negative); Leukocyte Esterase Urine Moderate (2+) (Negative); Nitrite Urine Negative (Negative); PH 6.5 (5.0-9.0); Specific Gravity - Urine 1.025 (1.005-1.025); UMIC TRIGGER UA YES; Urine Blood Negative (Negative); Urine Ketones Trace mg/dL (Negative); Urine Protein Trace mg/dL (Neg-Trace)
[2024-09-09 12:14] LABS: Bacteria Urine 2+ (None Seen); Hyaline Casts Urine 0-2 /LPF (0-2); RBC Urine 0-2 /HPF (0-2)
[2024-09-09 12:43] LABS: Alanine Aminotransferase 19 U/L (0-31); Albumin Level 4.1 g/dL (3.5-5.0); Anion Gap 10 (12-20); Aspartate Amino Transferase 25 U/L (5-31); Bilirubin Total 0.6 mg/dL (0.0-1.0); Blood Urea Nitrogen 14 mg/dL (9-16); Calcium 9.1 mg/dL (8.4-10.2); Carbon Dioxide 27 mmol/L (22-29); Chloride 109 mmol/L (96-108); Cholesterol 210 mg/dL (<200); Estimated Glomerular Filt Rate > 60; Glucose Random 90 mg/dL (60-115); HDL Cholesterol 53 mg/dL (>40); LDL Cholesterol Calculated 142 mg/dL (<100); Potassium 4.4 mmol/L (3.3-5.1); Sodium 142 mmol/L (135-145); Total Protein 6.6 g/dL (6.5-8.0); Triglycerides 76 mg/dL (<150)
[2024-09-09 12:51] LABS: Estimated Average Glucose 94 mg/dL; Hemoglobin A1C 125.5346 umol/L; Hemoglobin A1c % 4.9 % (<6.0); Total Hemoglobin (HGBA1C) 4146.2552 umol/L
[2024-09-09 12:58] LABS: Free T4 (Free Thyroxine) 1.02 ng/dL (0.71-1.85); Thyroid Stimulating Hormone 2.01 uIU/mL (0.32-4.0); Vitamin D 25-OH Total 69.4 ng/mL (>30)
[2024-09-09 12:59] LABS: Folate 12.8 ng/mL (> or = 4.0); Vitamin B12 675 pg/mL (200-900)
[2024-09-09 13:12] LABS: Alkaline Phosphatase 67 U/L (39-117)
== END 2024-09-09 09:50 | disposition home or self-care (01) ==
LOC: HO.HMGCLDS 09:49
PROVIDERS: PCP Internal Medicine; Visit Provider Internal Medicine
DX: R73.01 Impaired fasting glucose (principal); E78.00 Pure hypercholesterolemia, unspecified
CPT/HCPCS: 36415; 80053; 80061; 81001; 82306; 82607; 82746; 83036; 84439; 84443; 85025

== ENCOUNTER 2024-09-14 08:53 | Outpatient (AMB) | payer MEDICARE, SELFPAY ==
[2024-09-14 09:00] VITALS: BP 112/68; PULSE 70; O2SAT 98
--- NOTE | 2024-09-14 09:00 | AM.OFFVISMDC ---
Intake Vital Signs 09/14/24 09:00 Height 5 ft 2 in Weight 164 lb BMI 30.0 BP 112/68 Blood Pressure Location Lt brachial Position Sitting Pulse 70 Pulse Source Pulse Oximeter Pulse Oximetry (%) 98 Oxygen Delivery Method Room Air Intake Visit Reasons: ANNUAL- see comments Allergies ampicillin Allergy (Mild, Verified 09/14/24 09:01) Unknown Medication List - Last Reconciled 09/14/24 by Roz Sellers MD cholecalciferol (vitamin D3) 50 mcg PO DAILY coenzyme Q10 (CoQ-10) 30 mg PO DAILY [Left and Right wrist splint As directed] magnesium 200 mg PO DAILY multivitamin 1 tab PO DAILY [NEuroQ 2 ea PO] HPI ANNUAL- see comments HPI Details [facility] Neurology Dr[facility] Nuris Khan. episode dizziness , off balance. tinnitus [facility] Medical History Carpal tunnel syndrome on both sides Family history of Alzheimer's disease Numbness and tingling in both hands Breast cancer screening by mammogram Cervical cancer GERD (gastroesophageal reflux disease) Surgical History History of tooth extraction Wrist fracture, left Ovarian cyst S/P breast lumpectomy Family History Mother Dementia, Onset Age: 70 Father Heart valve replaced Sister No problems noted. Brother No problems noted. Brother No problems noted. Brother CAD (coronary artery disease) Daughter No problems noted. Maternal Grandmother Dementia Maternal Grandfather Heart attack Maternal Aunt CVA (cerebral vascular accident) Maternal Uncle CAD (coronary artery disease) Other Colon cancer Uterine cancer Social History Housing: House Alcohol intake: current Comment: 3-4 x a week 1-2 glasses Patient Tobacco Use Status: Former Tobacco user Tobacco use type: Cigarette Years Smoked: quit 24 years old e-Cigarette/Vaping Use: Never Used Second Hand Smoke Exposure: No service: No Current occupational status: employed Cognitive needs: No Hearing needs: No Vision needs: No Questionnaire Medicare Wellness Checkup [age] What gender do you identify with?: female During the past 4 weeks, how much have you been bothered by emotional problems such as feeling anxious, depressed, irritable, sad or downhearted, and blue?: slightly During the past 4 weeks, has your physical & emotional health limited your social activities with family, friends, neighbors, or groups?: not at all During the past 4 weeks, how much bodily pain have you generally had?: mild pain During the past 4 weeks, was someone available to help you if you needed & wanted help?: yes, as much as I wanted During the past 4 weeks, what was the hardest physical activity you could do for at least 2 minutes?: heavy Can you get to places out of walking distance without help? (For eg., can you travel alone on buses, taxis or drive your car?): Yes Can you go shopping for groceries or clothes without someone's help?: Yes Can you prepare your own meals?: Yes Can you do your housework without help?: Yes Because of any health problems, do you need the help of another person with your personal care needs such as eating, bathing, dressing or getting around the house?: No Can you handle your own money without help?: Yes During the past 4 weeks, how would you rate your health in general?: good During the past 4 weeks how have things been going for you?: pretty well Are you having difficulties driving your car?: no Do you always fasten your seat belt when you are in a car?: yes, usually During past 4 weeks, have you been bothered by the following: never: Sexual problems?, Trouble eating well?, Problems using the telephone? and Tiredness or fatigue? and seldom: Falling or dizzy when standing up and Teeth or denture problems? Have you fallen 2 or more times in the past year?: No Are you afraid of falling?: No Are you a smoker?: no During the past 4 weeks, how many drinks of wine, beer, or other alcoholic beverages did you have?: 2-5 drinks per week Do you exercise for about 20 minutes 3 or more times a week?: no, I usually do not exercise this much Have you been given information to help with the following?: no: Hazards in your house that might hurt you? and no: Keeping track of your medications? How often do you have trouble taking medicines the way you have been told to take them?: I do not have to take medicine How confident are you that you can control & manage most of your health problems?: very confident What is your race?: White PHQ-9 Over the last 2 weeks, how often have you been bothered by any of the following problems? 1. Little interest or pleasure in doing things: not at all 2. Feeling down, depressed, or hopeless: several days 3. Trouble falling or staying asleep, or sleeping too much: not at all 4. Feeling tired or having little energy: not at all 5. Poor appetite or overeating: several days 6. Feeling bad about yourself - or that you are a failure or have let yourself or your family down: not at all 7. Trouble concentrating on things, such as reading the newspaper or watching television: not at all 8. Moving or speaking so slowly that other people could have noticed. Or the opposite - being so fidgety or restless that you have been moving around a lot more than usual: not at all 9. Thoughts that you would be better off or of hurting yourself in some way: not at all Total score: 2 Depression Screening Interpretation: Positive Depression Screening Done: Yes 89223 - PHQ-9 Billing: Yes Source: Developed by Drs. Tony Conti, Digna Severino, Cyrus Wagner and colleagues, with an educational babak from [email or web address]. Thrive Questionnaire Date Thrive assessed: 06/15/24 I am a: Patient What is your living situation today?: I have a steady place to live Within the past 12 months, did the food you bought not last and you didn't have the money to get more?: Never true Within the past 12 months, did you worry whether your food would run out before you got money to buy more?: Never true Do you have trouble paying for medicines?: No Do you have trouble getting transportation to medical appointments?: No Do you have trouble paying your heating and electricity bill?: No Do you have trouble taking care of your child, family member or friend?: No Do you have trouble with day-to-day activities such as bathing, preparing meals, shopping, managing finances, etc.?: No Are you currently unemployed and looking for a job?: No Are you interested in more education?: No Please select the resources that you would like help with: None Currently or been in a relationship where the following occur: No concerns reported THRIVE Score: 0 LOWELL-7 AMB Questionnaire LOWELL-7 Date LOWELL - 7 assessed: 09/14/24 Feeling nervous, anxious, or on edge: 1 = Several days Not being able to stop or control worryin = Not at all Worrying too much about different things: 0 = Not at all Trouble relaxin = Not at all Being so restless that it is hard to sit still: 0 = Not at all Becoming easily annoyed or irritable: 1 = Several days Feeling afraid as if something awful might happen: 0 = Not at all Total LOWELL-7 score (0-4 normal; 5-9 mild; 10-14 moderate; 15-21 severe): 2 Source: Developed by Drs. Tony Conti, Digna Severino, Cyrus Wagner and colleagues, with an educational babak from [email or web address]. Review of Systems Const Denies poor appetite and Denies weakness Eyes Denies no additional complaints ENT Reports Normal hearing present, Denies dizziness, Denies nasal congestion, Denies tinnitus and Denies sore throat Card Denies chest pain, Denies syncope, Denies rapid heart rate and Denies dyspnea Resp Denies cough and Denies dyspnea GI Denies change in stool character, Reports constipation, Denies diarrhea, Denies nausea and Denies vomiting Denies urinary frequency, Denies difficulty voiding and Denies dysuria Neuro Reports Normal hearing present, Denies confusion, Denies dizziness, Denies syncope and Denies weakness Psych Denies confusion Physical Exam Vital Signs: Last Vital Signs Pulse 70 09/14/24 09:00 BP 112/68 09/14/24 09:00 Pulse Ox 98 09/14/24 09:00 Oxygen Delivery Method Room Air 09/14/24 09:00 BMI result Body Mass Index 30.0 Const General: No confusion Orientation/consciousness: No confusion HEENT Head: Yes normocephalic Ears: external ears normal and TM's normal bilaterally Face and sinus: Yes normal facial exam Mouth: moist mucous membranes Throat: Yes tonsils normal Eyes Conjunctivae: conjunctivae normal Pupils: Equal, round and reactive pupils present and Pupil accommodation reflex normal Direct Ophthalmoscopy: normal light reflex Neck Neck: No lymphadenopathy Thyroid: Thyroid normal Chest Chest palpation & inspection: normal inspection of the chest Resp Effort & Inspection: normal respiratory effort and no audible wheezes Auscultation: clear to auscultation bilaterally, no crackles, no wheezes and lung sounds not diminished Cardio Rate: regular rate Rhythm: regular rhythm Peripheral pulses: radial pulses present and dorsalis pedis present GI Palpation (GI): no masses Auscultation: normal bowel sounds and normoactive bowel sounds Rectal Exam - Female: deferred Skin General skin exam: no rashes or lesions noted Rashes: no rashes Neuro General: No confusion Cranial nerves: Yes Equal, round and reactive pupils present and Yes Normal hearing present Cognition (Neuro): normal cognition Gait exam (Neuro): Normal gait present Motor exam (neuro): 5/5 motor strength present throughout Deep tendon reflexes (DTR's): Right brachioradialis reflex intensity grade: 2+, Left brachioradialis reflex intensity grade: 2+, Right patellar reflex intensity grade: 2+ and Left patellar reflex intensity grade: 2+ Extrem General: No edema Assessment & Plan Assessment & Plan (1) Annual wellness visit: Code(s): Z00.00 - Encounter for general adult medical examination without abnormal findings Plan: Patient is advised to eat healthy, keep well hydrated, keep active and have adequate sleep. (2) Hypercholesterolemia: Code(s): E78.00 - Pure hypercholesterolemia, unspecified Plan: Avoid fried foods, chicken skin, eggs, butter margarine, pastries and meat. Be it pork or beef they have a lot of cholesterol LDL goal of less than 130 and triglyceride of less than 150. declined med (3) GERD (gastroesophageal reflux disease): Code(s): K21.9 - Gastro-esophageal reflux disease without esophagitis Plan: Avoid the foods that causes that usually spicy foods, tomato products, juices, coffee, soda and foods that your sensitive to. After eating do not lie down, allow 3-4 hours before in lie down. And keep the head of bed above 30 degrees to avoid the acid from going up. (4) Impaired fasting blood sugar: Code(s): R73.01 - Impaired fasting glucose Plan: Decrease the amount of carbohydrate intake, pasta, bread, rice and potatoes are all sugar and that is aside from all the sweet stuff, remember that fruits are good but they are Sweet also. (5) Tubular adenoma of colon: Comment: Two thousand nineteen Code(s): D12.6 - Benign neoplasm of colon, unspecified Plan: Patient is reminded about colonoscopy (6) Urge incontinence: Code(s): N39.41 - Urge incontinence (7) Right shoulder pain: Code(s): M25.511 - Pain in right shoulder Plan: R biccioital tenditis Plan History of Present Illness The patient is a 64-year-old female presenting for a wellness and health maintenance visit. Her medical history includes obesity managed through lifestyle measures, gastroesophageal reflux disease, and hypercholesterolemia, with an LDL cholesterol level of 142 mg/dL. There is a notable history of peptic ulcer disease. A significant past finding includes a tubular adenoma identified in a colonoscopy conducted in 2018. The most recent mammogram in September 2024 detected a breast mass, warranting a bi-annual follow-up. Neurologically, in November 2023, a consultation was undertaken with no significant pathological findings in the context of a normal brain MRI. The patient manages stress-related cognitive fatigue and occasional imbalance episodes but maintains activity without falls. Health Maintenance - Breast mass follow-up every six months noted from the last mammogram. - Colonoscopy with tubular adenoma finding in 2018. - Neurological evaluation including normal MRI in November 2023. - Annual stress management and mental health discussions due to stress-related cognitive fatigue. - Monitoring LDL cholesterol; aim to reduce below 100 mg/dL. - Continuous supplementation of Vitamin D and B12. - Alcohol intake within recommended guidelines. Social History - Alcohol consumption is limited to a couple of glasses of wine per week. - No history of smoking or recreational drug use. - Active lifestyle with engagement in social activities. - Compliance with nutritional supplementation including Vitamin C, D, CoQ10, Ginkgo, Magnesium, and multivitamins. Review of Systems - Cardiovascular: Denies chest pain. - Neurological: Reports episodes of feeling off balance; denies dizziness. - Gastrointestinal: Denies nausea, vomiting, or difficulty swallowing. - Genitourinary: Denies urinary symptoms; reports a past urinary tract infection. - Psychiatric: Reports stress-induced cognitive fatigue. Physical Exam General: Cooperative, healthy appearing, comfortable, no acute distress and well developed Orientation: Patient oriented x3 Limitations: No limitations Head: Normal to inspection Ears: Hearing grossly normal bilaterally, still have ringing in ears Nose: Normal external nose present Face and sinus: Normal facial exam Eyes: Appearance normal, both eyes and all related structures Neck: Normal visual inspection and Yes full ROM Respiratory: Normal respiratory effort and able to speak in complete sentences. Clear to auscultation bilaterally Cardiovascular: Regular rate and rhythm. Normal S1 and S2 GI: Normal to inspection. Soft to palpation and nontender Skin: No rashes or lesions noted Neuro: Patient oriented x3, had two incidences of slight off balance but no falls or blackouts Extremities: Normal to inspection Results - Labs: Elevated LDL cholesterol at 142 mg/dL, normal renal function, normal blood count. - Tests: Normal MRI of the brain, vitamin B12 and D deficiencies. Plan The wellness visit addressed ongoing management of hypercholesterolemia, maintaining current lifestyle interventions with an LDL target below 100 mg/dL. The breast mass requires six-monthly monitoring. Symptoms of GERD are managed effectively with dietary measures. Existing deficiencies in Vitamins D and necessitate continued supplementation. Past peptic ulcer disease history remains without current implications. Neurological evaluations have resulted in no further interventions, with attention given to stress-induced cognitive factors. Continued obesity management via diet and exercise was emphasized. No issues reported with past amoxicillin tolerance despite penicillin allergy concerns. Social habits regarding alcohol consumption align with health recommendations. Patient was informed and verbally consented to the use of an ambient scribe for clinic note documentation during this visit. Discussion Notes During the visit, comprehensive discussions focused on addressing the patient's concerns and conditions, including hypercholesterolemia management targeting LDL levels below 100 mg/dL, guided by dietary changes. For the breast mass, routine mammograms are advised every six months to monitor progression. GERD management remains through established dietary measures without further medication adjustment based on stable symptomatology. Continued vitamin supplementation was encouraged to correct deficiencies. The stress-induced imbalance is noted, without further neurological intervention based on normal prior evaluations. Historical allergy mitigations regarding penicillin derivatives were discussed with successful administration of amoxicillin clarifying allergy status. The patient committed to moderating alcohol intake and maintaining current supplement regimen for overall health reassurance. Patient Instructions - Continue existing dietary measures to manage GERD symptoms and hypercholesterolemia. - Attend scheduled six-month follow-up for breast mass monitoring. - Maintain prescribed Vitamin D and B12 supplementation. - Engage in regular physical activity to further manage obesity. - Adhere to alcohol consumption guidelines, limiting to one to two glasses of wine per week. - Monitor any changes in balance or stress-induced symptoms and report if persistent. - Follow-up with routine blood tests and cholesterol level checks. - Ensure all medication and supplement adherence as previously advised. Orders: Orders XR shoulder RT min 2V Today M25.511 - Pain in right shoulder XR chest 2V Today R07.9 - Chest pain, unspecified XR thoracic spine 2V Today M54.9 - Dorsalgia, unspecified Referrals Orthopedics Referral M25.511 - Pain in right shoulder Medications: New nitrofurantoin monohyd/m-cryst 100 mg (Macrobid) must administer with a meal/food 100 mg PO Q12H 14 caps 0RF 7 days N39.41 - Urge incontinence Quality Reporting (2019) Depression/Bipolar (159/160/161/177) PHQ-9: Total score: 2 Coding Level of Care Code Medicare Subsequent (G0439) Diagnoses Annual wellness visit Z00.00 Hypercholesterolemia E78.00 GERD (gastroesophageal reflux disease) K21.9 Impaired fasting blood sugar R73.01 Tubular adenoma of colon D12.6 Urge incontinence N39.41 Right shoulder pain M25.511 Additional Codes PHQ-9 - 56970 - PHQ-9 Billing: Yes ([id number])
--- OUTSIDE RECORDS SUMMARY | 2024-09-14 09:16 | XMS_ITS | Encounter Summary ---
Author Organization [facility] Address [address] [place] [address] Care Team Providers Care Edging Machine Catcher Name Role Phone Rzo Sellers MD Primary Care Provider [phone] Reason for Referral * Imaging (Routine) - Pending Review Specialty Diagnoses / Procedures Referred By Contac t Referred To Contact Radiology Diagnoses Breast asymmetry Procedures MG Mammo Diagnostic Addl Views Left Roz Sellers MD [address] [place] [address] Dr [address] [place] [address] [place] [address] Phone: tel: fax: [address] [phone] Phone: tel: Referral ID Status Reason Start Date Expiration Date V isits Requested Visits Authorized [id number] Pending Review 08/08/2024 08/08/2025 1 1 Reason for Visit * Imaging (Routine) - Pending Review Specialty Diagnoses / Procedures Referred By Contac t Referred To Contact Radiology Diagnoses Breast asymmetry Procedures MG Mammo Diagnostic Addl Views Left Roz Sellers MD [address] [place] [address] Dr [address] [place] [address] [place] [address] Phone: tel: fax: [address] [phone] Phone: tel: Referral ID Status Reason Start Date Expiration Date V isits Requested Visits Authorized [id number] Pending Review 08/08/2024 08/08/2025 1 1 Encounter Details Date Type Department Care Team (Latest Contact Info) Description 09/08/2024 7:53 AM EDT - 09/08/2024 11:59 PM EDT Hospital Encounter [facility] at [address] [phone] Breast asymmetry Discharge Disposition: Home or Self [...] AM EST Appointment [facility] at [address] [phone] documented as of this encounter Procedures Procedure [...] months. Mammo Location: [facility] at [facility], [address] [place] [address], [id number], . -------- FINAL REPORT -------- Dictated By: Lucila Bates Dictated Date: 09/08/2024 08:20 ET Assigned Physician: Lucila Bates Reviewed and Electronically Signed By: Lucila Bates Signed Date: 09/08/2024 09:00 ET Workstation ID: [id number] Transcribed By: Self Edit Transcribed Date: 09/08/2024 [...] months. Mammo Location: [facility], [address] [place] [address], [id number], . -------- FINAL REPORT -------- Dictated By: Lucila Bates Dictated Date: 09/08/2024 08:20 ET Assigned Physician: Lucila Bates Reviewed and Electronically Signed By: Lucila Bates Signed Date: 09/08/2024 09:00 ET Workstation ID: [id number] Transcribed By: Self Edit Transcribed Date: 09/08/2024 08:29 ET Roz Sellers MD IMG BI PROCEDURES Final Result documented in this encounter Visit Diagnoses Diagnosis Breast asymmetry documented in this encounter Care Teams Edging Machine Catcher Relationship Specialty Start Date End Date Roz Sellers MD [address] [place] [phone] PCP - General Internal Medicine 09/08/24 documented as of this encounter
--- OUTSIDE RECORDS SUMMARY | 2024-09-14 09:16 | XMS_ITS | Clinical Summary ---
Author Organization [facility] Address [address] [place] [address] Phone Care Team Providers Care Media Center Assistant Name Role Phone Roz Sellers MD Primary Care Provider [phone] Allergies Active Allergy Reactions Criticality Noted Date [...] - 09/08/2024 11:59 PM EDT Hospital Encounter [facility] Ultrasound [address] [place] [phone] Breast asymmetry Discharge Disposition: Home or Self Care 09/08/2024 7:53 AM EDT - 09/08/2024 11:59 PM EDT [facility] at [address] [phone] Breast asymmetry Discharge Disposition: Home or Self Care 09/04/2024 Telephone Gastroenterology - [address] [phone] Meghana Wang MD 08/02/2024 7:49 AM EDT - 08/02/2024 11:59 PM EDT [facility]counter [facility] [address] [phone] Encounter for screening mammogram for breast cancer [...] AM EST Appointment [facility] [address] [phone] Health Maintenance Due Date Last Done Comments [...] months. Mammo Location: [facility], [address] [place] [address], [phone], . -------- FINAL REPORT -------- Dictated By: Lucila Bates Dictated Date: 09/08/2024 08:20 ET Assigned Physician: Lucila Bates Reviewed and Electronically Signed By: Lucila Bates Signed Date: 09/08/2024 09:00 ET Workstation ID: [id number] Transcribed By: Self Edit Transcribed Date: 09/08/2024 [...] months. Mammo Location: [facility], [address] [place] [address], [address], . -------- FINAL REPORT -------- Dictated By: Lucila Bates Dictated Date: 09/08/2024 08:20 ET Assigned Physician: Lucila Bates Reviewed and Electronically Signed By: Lucila Bates Signed Date: 09/08/2024 09:00 ET Workstation ID: [id number] Transcribed By: Self Edit Transcribed Date: 09/08/2024 [...] months. Mammo Location: [facility], [address] [place] [address], [address], . -------- FINAL REPORT -------- Dictated By: Lucila Bates Dictated Date: 09/08/2024 08:20 ET Assigned Physician: Lucila Bates Reviewed and Electronically Signed By: Lucila Bates Signed Date: 09/08/2024 09:00 ET Workstation ID: [id number] Transcribed By: Self Edit Transcribed Date: 09/08/2024 [...] months. Mammo Location: [facility], [address] [place] [address], [id number], . -------- FINAL REPORT -------- Dictated By: Lucila Bates Dictated Date: 09/08/2024 08:20 ET Assigned Physician: Lucila Bates Reviewed and Electronically Signed By: Lucila Bates Signed Date: 09/08/2024 09:00 ET Workstation ID: [id number] Transcribed By: Self Edit Transcribed Date: 09/08/2024 [...] recommended. Mammo Location: [facility], [address] [place] [address], [phone], . -------- FINAL REPORT -------- Dictated By: Lucila Bates Dictated Date: 08/08/2024 07:48 ET Assigned Physician: Lucila Bates Reviewed and Electronically Signed By: Lucila Bates Signed Date: 08/08/2024 07:54 ET Workstation ID: [id number] Transcribed By: Self Edit Transcribed Date: 08/08/2024 [...] recommended. Mammo Location: [facility], [address] [place] [address], [address], . -------- FINAL REPORT -------- Dictated By: Lucila Bates Dictated Date: 08/08/2024 07:48 ET Assigned Physician: Lucila Bates Reviewed and Electronically Signed By: Lucila Bates Signed Date: 08/08/2024 07:54 ET Workstation ID: [id number] Transcribed By: Self Edit Transcribed Date: 08/08/2024 07:48 ET us Self Referral Sppl IMG BI PROCEDURES Final Resul t from Last 3 Months Insurance MEDICARE [facility] Care Teams Media Center Assistant Relationship Specialty Start Date End Date Roz Sellers MD [address] [place] [address] PCP - General Internal Medicine 09/08/24
--- OUTSIDE RECORDS SUMMARY | 2024-09-14 09:16 | XMS_ITS | Encounter Summary ---
Author Organization [facility] Address [address] [place] [address] Care Team Providers Care Technician Telecommunication Systems Name Role Phone Roz Sellers MD Primary Care Provider [phone] Encounter Details Date Type Department Care Team (Late st Contact Info) Description 09/04/2024 Telephone Gastroenterology - [address] [place] [phone] Meghana Garcias MD [address] [place] [address] Social History Tobacco Use Types Packs/Day Years Used Date Smoking Tobacco: Never Assessed Comments No Sex and Gender Information Value Date Recorded Sex Assigned at Not on file Legal Sex Female 10:09 PM EST Gender Identity Not on file Sexual Orientation Not on file documented as of this encounter Progress Notes * Estefany Chau - 09/11/2024 3:59 PM EDT 3rd attempt to schedule an appointment patient left message to call back and letter sent * Estefany Chau - 09/07/2024 8:48 AM EDT 2nd attempt to schedule an appointment patient left message to call back * Justina Flores MA - 09/05/2024 10:14 AM EDT 1st attempt to schedule an appointment patient left message to call back HX OF POLYPS-GARCIAS * Batool Dalal MA - 09/04/2024 3:01 PM EDT MEDS AND ALLERGIES UPDATED * Gale Pride - 09/04/2024 2:49 PM EDT REFERRAL RECEIVED FROM [facility] FOR COLON--PASSED TO [facility] UPDATE documented in this encounter Plan of Treatment Upcoming Encounters Date Type Department Care Team (Late st Contact Info) Description 03/13/2025 8:00 AM EST Appointment [facility] at [address] [phone] documented as of this encounter Visit Diagnoses Not on filedocumented in this encounter Historical Medications * This list may reflect changes made after this encounter. multivit-min/ferr ous fumarate (MULTI VITAMIN ORAL) Take by mouth. ginkgo biloba leaf extract 40 mg capsule Take by mouth. coenzyme Q-10 30 mg capsule Take 1 capsule (30 mg total) by mouth 1 (one) time each day. cholecalciferol, vitamin D3, 50 mcg (2,000 unit) tablet,chewable Chew. ASCORBATE CALCIUM, VITAMIN C, ORAL Take by mouth. added in this encounter Care Teams Technician Telecommunication Systems Relationship Specialty Start Date End Date Marlo, MD Roz [address] [place] [phone] PCP - General Internal Medicine 09/08/24 documented as of this encounter
--- OUTSIDE RECORDS SUMMARY | 2024-09-14 09:16 | XMS_ITS | Encounter Summary ---
Author Organization [facility] Address [address] [place] [address] Care Team Providers Care Road Roller Engineer Name Role Phone Roz Sellres MD Primary Care Provider [phone] Reason for Referral * Imaging (Routine) - Closed Specialty Diagnoses / Procedures Referred By Arleyac t Referred To Contact Radiology Diagnoses Breast asymmetry Procedures US Breast Limited Left Roz Sellers MD [address] [place] [address] Phone: tel: [facility] Referral ID Status Reason Start Date Expiration Date Visits Re quested Visits Authorized [id number] Closed 09/08/2024 09/08/2025 1 1 Reason for Visit * Imaging (Routine) - Closed Specialty Diagnoses / Procedures Referred By Contac t Referred To Contact Radiology Diagnoses Breast asymmetry Procedures US Breast Limited Left Roz Sellers MD [address] [place] [address] Phone: tel: [facility] Referral ID Status Reason Start Date Expiration Date Visits Re quested Visits Authorized [id number] Closed 09/08/2024 09/08/2025 1 1 Encounter Details Date Type Department Care Team (Latest Contact Info) Description 09/08/2024 8:25 AM EDT - 09/08/2024 11:59 PM EDT Hospital Encounter [facility] Ultrasound [address] [place] [phone] Breast asymmetry Discharge Disposition: Home or Self [...] Upcoming Encounters Date Type Department Care Team ([facility] st Contact Info) Description 03/13/2025 8:00 AM EST Appointment [facility] at [address] [phone] documented as of this encounter [...] months. Mammo Location: [facility], [address] [place] [address], [address], . -------- FINAL REPORT -------- Dictated By: Lucila Bates Dictated Date: 09/08/2024 08:20 ET Assigned Physician: Lucila Bates Reviewed and Electronically Signed By: Lucila Bates Signed Date: 09/08/2024 09:00 ET Workstation ID: [id number] Transcribed By: Self Edit Transcribed Date: 09/08/2024 [...] months. Mammo Location: [facility], [address] [place] [address], [address], . -------- FINAL REPORT -------- Dictated By: Lucila Bates Dictated Date: 09/08/2024 08:20 ET Assigned Physician: Lucila Bates Reviewed and Electronically Signed By: Lucila Bates Signed Date: 09/08/2024 09:00 ET Workstation ID: [id number] Transcribed By: Self Edit Transcribed Date: 09/08/2024 08:29 ET us Roz Sellers MD IMG US PROCEDURES Final Result documented in this encounter Visit Diagnoses Diagnosis Breast asymmetry documented in this encounter Care Teams Road Roller Engineer Relationship Specialty Start Date End Date Roz Sellers MD [address] [place] [address] PCP - General Internal Medicine 09/08/24 documented as of this encounter
== END 2024-09-14 10:00 | disposition home or self-care (01) ==
LOC: HO.HMCH 08:53
PROVIDERS: PCP Internal Medicine; Visit Provider Internal Medicine
DX: Z00.00 Encounter for general adult medical examination without abnormal findings (principal); E78.00 Pure hypercholesterolemia, unspecified; K21.9 Gastro-esophageal reflux disease without esophagitis; R73.01 Impaired fasting glucose; D12.6 Benign neoplasm of colon, unspecified; N39.41 Urge incontinence; M25.511 Pain in right shoulder

== ENCOUNTER → 2024-09-14 08:53 | Outpatient (BNVA) | payer MEDICARE, SELFPAY | PROVIDERS: PCP Internal Medicine; Visit Provider Internal Medicine | DX: Z00.00 Encounter for general adult medical examination without abnormal findings (principal); E78.00 Pure hypercholesterolemia, unspecified; K21.9 Gastro-esophageal reflux disease without esophagitis; R73.01 Impaired fasting glucose; D12.6 Benign neoplasm of colon, unspecified; N39.41 Urge incontinence; M25.511 Pain in right shoulder | CPT/HCPCS: 96127 ==

== ENCOUNTER 2024-10-14 09:46 | Outpatient (REF) | payer MEDICARE, SELFPAY ==
--- NOTE | ~2024-10-14 | XR_ITS ---
EXAMINATION: XR THORACIC SPINE CLINICAL INFORMATION: M54.9 - Dorsalgia, unspecified COMPARISON: None available. TECHNIQUE: 2 views of the thoracic spine were obtained. FINDINGS: There is no fracture or bone destruction seen and the vertebral alignment is normal. There is no disc space narrowing. There is no abnormality of the paraspinal soft tissues. XR/XR thoracic spine 2V IMPRESSION: Unremarkable dorsal spine examination. Electronically signed by: Torin Kimbrough MD 10/16/2024 08:07 AM EDT
--- NOTE | ~2024-10-14 | XR_ITS ---
EXAMINATION: XR CHEST CLINICAL INFORMATION: R07.9 - Chest pain, unspecified COMPARISON: None available. TECHNIQUE: 2 views of the chest were obtained. FINDINGS: No significant abnormality is noted involving the heart, lungs, mediastinum, bony thorax or soft tissues. XR/XR chest 2V IMPRESSION: Unremarkable chest examination. Electronically signed by: Torin Kimbrough MD 10/16/2024 08:06 AM EDT RP
--- NOTE | ~2024-10-14 | XR_ITS ---
EXAMINATION: XR SHOULDER, RIGHT CLINICAL INFORMATION: M25.511 - Pain in right shoulder COMPARISON: None available. TECHNIQUE: Three views of the right shoulder. FINDINGS: There is mild loss of AC joint and glenohumeral space with AC joint periarticular spurring. No acute fracture, lytic or sclerotic process seen. There is irregularity along the greater tuberosity but without bony spur or calcification. The soft tissues are normal. XR/XR shoulder RT min 2V IMPRESSION: Mild DJD. No visible acute fracture or dislocation seen. Electronically signed by: Torin Kimbrough MD 10/16/2024 08:09 AM EDT
--- OUTSIDE RECORDS SUMMARY | 2024-10-14 09:48 | XMS_ITS | Clinical Summary ---
Author Organization [facility] Address [address] [place] [address] Phone Care Team Providers Care Hog Man Name Role Phone Roz Sellers MD Primary Care Provider [phone] Allergies Active Allergy Reactions Criticality Noted Date [...] Encounters Date Type Department Care Team Description 09/29/2024 8:00 AM EDT Consult Gastroenterology - [address] [phone] Meghana Wang MD Gastroesophageal reflux disease without esophagitis (Primary Dx); Colon cancer screening 09/29/2024 Telephone Gastroenterology - [address] [phone] Meghana Wang MD 09/08/2024 8:25 AM EDT - 09/08/2024 11:59 PM EDT Hospital Encounter [facility] Ultrasound [address] [place] [phone] Breast asymmetry Discharge Disposition: Home or Self Care 09/08/2024 7:53 AM EDT - 09/08/2024 11:59 PM EDT [facility] at [address] [phone] Breast asymmetry Discharge Disposition: Home or Self Care 09/04/2024 Telephone Gastroenterology - [address] [phone] Meghana Wang MD 08/02/2024 7:49 AM EDT - 08/02/2024 11:59 PM EDT Hospital Encounter [facility] at [address] [phone] Encounter for screening mammogram for breast cancer Discharge Disposition: Home or Self Care from Last 3 Months Surgical History Surgery Date Site/Laterality Comments BREAST MASS EXCISION BREAST LUMPECTOMY COLONOSCOPY W/ BIOPSIES 02/14/2019 tiny TA ESOPHAGOGASTRODUODENOSCOPY 02/14/2019 nl with nl bx COLONOSCOPY W/ POLYPECTOMY 05/19/2013 TA x 1 ESOPHAGOGASTRODUODENOSCOPY 05/19/2013 nl with nl bx Medical History Medical History Date Comments GERD (gastroesophageal reflux disease) Obesity Hyperlipidemia Wrist fracture Ovarian cyst Iron deficiency anemia 2006 egd, colo noscopy and capsule endoscopy all negative Family History Medical History Relation Name Comments Breast cancer Mother's Sister Relation Name Status Comments Mother's Sister Alive Social History Tobacco Use Types Packs/Day Years Used Date Smoking Tobacco: Former Cigarettes Tobacco Cessation:Counseling Given: Not Answered Alcohol Use Standard Drinks/Week Comments Yes 0 (1 standard drink = 0.6 oz pur e alcohol) Comments No Sex and Gender Information Value [...] - Inhaled Oxygen Concentration - - Weight 74.6 kg (164 lb 6.4 oz) 09/29/2024 7:52 A M EDT Height 157.5 cm (5' 2 ) 09/29/2024 7:52 AM EDT Body Mass Index 30.07 09/29/2024 7:52 AM EDT Plan of Treatment Upcoming Encounters Date Type Department Care Team (Late st Contact Info) Description 11/16/2024 3:00 PM EDT Appointment [facility] Endoscopy [address] [place] [phone] Meghana Wang MD [address] [phone] 03/13/2025 8:00 AM EST Appointment [facility] [address] [place] [phone] Health Maintenance Due Date Last Done Comments [...] Influencers of Health Screening 04/11/2022 COVID-19 Vaccine (2023- season) 2024 Falls Risk Assessment 2024 Influenza [...] months. Mammo Location: [facility], [address] [place] [address], [address], . -------- FINAL REPORT -------- Dictated By: Lucila Bates Dictated Date: 09/08/2024 08:20 ET Assigned Physician: Lucila Bates Reviewed and Electronically Signed By: Lucila Bates Signed Date: 09/08/2024 09:00 ET Workstation ID: [id number] Transcribed By: Self Edit Transcribed Date: 09/08/2024 [...] however likely represents a small cyst. ?? us Carisha Sellers MD IMG US PROCEDURES Final Result [...] months. Mammo Location: [facility], [address] [place] [address], [address], . -------- FINAL REPORT -------- Dictated By: Lucila Bates Dictated Date: 09/08/2024 08:20 ET Assigned Physician: Lucila Bates Reviewed and Electronically Signed By: Lucila Bates Signed Date: 09/08/2024 09:00 ET Workstation ID: [id number] Transcribed By: Self Edit Transcribed Date: 09/08/2024 [...] however likely represents a small cyst. ?? [facility] Marlo NICHOLS IMG BI PROCEDURES Final Result * (ABNORMAL) [...] recommended. Mammo Location: [facility], [address] [place] [address], [address], . -------- FINAL REPORT -------- Dictated By: Lucila Bates Dictated Date: 08/08/2024 07:48 ET Assigned Physician: Lucila Bates Reviewed and Electronically Signed By: Lucila Bates Signed Date: 08/08/2024 07:54 ET Workstation ID: [id number] Transcribed By: Self Edit Transcribed Date: 08/08/2024 [...] recommended. Mammo Location: [facility], [address] [place] [address], [address], . -------- FINAL REPORT -------- Dictated By: Lucila Bates Dictated Date: 08/08/2024 07:48 ET Assigned Physician: Lucila Bates Reviewed and Electronically Signed By: Lucila Bates Signed Date: 08/08/2024 07:54 ET Workstation ID: [id number] Transcribed By: Self Edit Transcribed Date: 08/08/2024 07:48 ET us Self Referral Sppl IMG BI PROCEDURES Final Resul t from Last 3 Months Insurance MEDICARE [facility] Care Teams Hog Man Relationship Specialty Start Date End Date Roz Sellers MD [address] [place] [address] PCP - General Internal Medicine 09/08/24
== END 2024-10-14 09:47 | disposition home or self-care (01) ==
LOC: HO.HMGCX 09:46
PROVIDERS: PCP Internal Medicine; Visit Provider Internal Medicine
DX: R07.9 Chest pain, unspecified (principal); M25.511 Pain in right shoulder; M54.9 Dorsalgia, unspecified
CPT/HCPCS: 71046; 72070; 73030

== ENCOUNTER → 2024-10-14 09:50 | Outpatient (BNV) | payer MEDICARE, SELFPAY | PROVIDERS: PCP Internal Medicine; Visit Provider Radiology Diagnostic Radiology | DX: R07.9 Chest pain, unspecified (principal); M54.9 Dorsalgia, unspecified; M25.511 Pain in right shoulder | CPT/HCPCS: 71046; 72070; 73030 ==

== ENCOUNTER 2024-12-27 08:58 | Outpatient (AMB) | payer MEDICARE, SELFPAY ==
[2024-12-27 09:11] VITALS: BP 102/60; PULSE 68; TEMP 36.8; O2SAT 97; BMI 30.4
--- NOTE | 2024-12-27 09:11 | AM.OFFWIN_ITS ---
Intake Vital Signs 12/27/24 09:11 Height 5 ft 2 in Weight 166 lb BMI 30.4 BP 102/60 Blood Pressure Location Rt brachial Position Sitting Pulse 68 Pulse Source Pulse Oximeter Temp 98.3 F Temp Source Oral Pulse Oximetry (%) 97 Oxygen Delivery Method Room Air Intake Visit Reasons: EP-rt leg bruise Patient Tobacco Use Status: Former Tobacco user Photographic Enlarger Operator Required: No Is last menstrual period known: No Post menopausal: Yes Patient : No Allergies ampicillin Allergy (Mild, Verified 12/27/24 09:15) Unknown Do you need a note to return to daycare/school/sports/work: No HPI HPI Comments History of Present Illness Details History of Present Illness - The patient is a 64-year-old female pr esenting with concern regarding an unexplained bruise and possible insect bite. - The bruise appeared suddenly, initiall y as small dots and it was raised. - Then it had expanded over time. - The patient noted tenderness but no he at at the site of the bruise. - The patient was engaged in yard work p rior to the appearance of the bruise, suggesting a possible insect bite. - The patient denies taking aspirin or h aving a known history of anemia. - There is a concern for lymphadenopathy in the groin area and location of the bruise. - She denies fever, chills, numbness, ti ngling, redness, warmth, discharge or streaking. Physical Exam General: Cooperative, healthy appearing, comfortable, no acute distress and well developed Orientation: Patient oriented x3 Respiratory: Normal respiratory effort and able to speak in complete sentences. Clear to auscultation bilaterally Cardiovascular: Regular rate and rhythm. Normal S1 and S2 Skin: Bruise present on the right upper inner leg, tender but not hot or indurated, no rashes or lesions noted. No steaking noted. Neuro: Sensation is intact Extremities: Normal to inspection. No edema noted. FROM of the right leg. Ambulates with steady gait. Strength is 5/5 on the LE bilaterally. Patient was informed and verbally consented to the use of an ambient scribe for clinic note documentation during this visit. [facility] Medical History Carpal tunnel syndrome on both sides Family history of Alzheimer's disease Numbness and tingling in both hands Breast cancer screening by mammogram Cervical cancer GERD (gastroesophageal reflux disease) Surgical History History of tooth extraction Wrist fracture, left Ovarian cyst S/P breast lumpectomy Family History Mother Dementia, Onset Age: 70 Father Heart valve replaced Sister No problems noted. Brother No problems noted. Brother No problems noted. Brother CAD (coronary artery disease) Daughter No problems noted. Maternal Grandmother Dementia Maternal Grandfather Heart attack Maternal Aunt CVA (cerebral vascular accident) Maternal Uncle CAD (coronary artery disease) Other Colon cancer Uterine cancer Social History Housing: House Alcohol intake: current Comment: 3-4 x a week 1-2 glasses Patient Tobacco Use Status: Former Tobacco user Tobacco use type: Cigarette Years Smoked: quit 24 years old e-Cigarette/Vaping Use: Never Used Second Hand Smoke Exposure: No Patient : No service: No Current occupational status: employed Cognitive needs: No Hearing needs: No Vision needs: No Review of Systems Const All systems reviewed & are unremarkable except as noted in HPI and below Physical Exam Vital Signs: Last Vital Signs Temp 98.3 F 12/27/24 09:11 Pulse 68 12/27/24 09:11 BP 102/60 12/27/24 09:11 Pulse Ox 97 12/27/24 09:11 Oxygen Delivery Method Room Air 12/27/24 09:11 BMI result Body Mass Index 30.4 Assessment & Plan Assessment & Plan (1) Contusion of leg, right: Code(s): S80.11XA - Contusion of right lower leg, initial encounter Qualifiers: Encounter type: initial encounter Qualified Code(s): S80.11XA - Contusion of right lower leg, initial encounter Plan Most likely contusion from a possible insect bite vs trauma Plan - Monitor the bruise for changes in size, color, or temperature. - Advise the patient to seek medical attention if the bruise becomes red, hot, or if there are streak tolentino indicating infection. - Consider laboratory testing to rule out anemia or other hematological issues if symptoms persist. Coding Level of Care Code Est Pt Level 3 (43306) Diagnoses Contusion of right lower extremity, initial encounter S80.11XA Encounter type: initial encounter
--- OUTSIDE RECORDS SUMMARY | 2024-12-27 09:41 | XMS_ITS | Clinical Summary ---
Author Organization [facility] Address [address] [place] [address] Phone Care Team Providers Care Claim Taker Name Role Phone Roz Sellers MD Primary Care Provider [phone] Allergies Active Allergy Reactions Criticality Noted Date Comments Ampicillin Rash Low 09/26/2019 Fine with amoxicillin Medications ASCORBATE CALCIUM, VITAMIN C, ORAL Take by mouth. Active cholecalciferol , vitamin D3, 50 mcg (2,000 unit) tablet,chewable Chew. Acti ve coenzyme Q-10 30 mg capsule Take 1 capsule (30 mg total) by mouth 1 (one) time each day. Active ginkgo biloba leaf extract 40 mg capsule Take by mouth. Active multivit-min/fe rrous fumarate (MULTI VITAMIN ORAL) Take by mouth. Active magnesium oxide (MAG-OX) 400 mg magnesium tablet Take 1 tablet (400 mg total) by mouth 1 (one) time each day. Active cyanocobalamin (VITAMIN B-12) 1,000 mcg tablet Take 1 tablet (1,000 mcg total) by mouth 1 (one) time each day. Active UNABLE TO FIND Med Name: neuroQ Active Active Problems Problem Noted Date Diagnosed Date Anemia 11/16/2024 Encounters Date Type Department Care Team Description 11/16/2024 10:01 AM EDT Anesthesia Event [facility] [address] [place] [address] Christie Kay MD 11/16/2024 9:19 AM EDT - 11/16/2024 11:59 PM EDT Hospital Encounter [facility] [address] [place] [address] Meghana Wang MD Kriz, Petra, MD Johnson, Lorraine, CRNA Gastroesophageal reflux disease without esophagitis; Tubular adenoma of colon Discharge Disposition: Home or Self Care 09/29/2024 8:00 AM EDT Consult Gastroenterology - [address] [place] [phone] Meghana Wang MD Gastroesophageal reflux disease without esophagitis (Primary Dx); Colon cancer screening 09/29/2024 Telephone Gastroenterology - [address] [phone] Meghana Wang MD from Last 3 Months Surgical History Surgery [...] colo noscopy and capsule endoscopy all negative Cervical carcinoma ([facility] V24, [facility] V28) Family History Medical History Relation Name Comments Breast cancer Mother's Sister Relation Name Status Comments Mother's Sister Alive Social History Tobacco Use Types Packs/Day Years Used Date Smoking Tobacco: Former Cigarettes Smokeless Tobacco: Never Tobacco Cessation:Counseling Given: Not Answered Alcohol Use Standard Drinks/Week Comments Yes 0 (1 standard drink = 0.6 oz pur e alcohol) OCASSIONAL Interpersonal Safety Answer Date Record ed Physical Abuse 11/16/2024 Verbal Abuse 11/16/2024 Comments No Sex and Gender Information Value Date Recorded Sex Assigned at Not on file Legal Sex Female 10:09 PM EST Gender Identity Not on file Sexual Orientation Not on file Obstetrics History Para Term AB IAB SAB Ectopic Multiple Livin g Live Births 3 Last Filed Vital Signs Vital Sign Reading Time Taken Comments Blood Pressure 100/65 11/16/2024 10:53 AM EDT Pulse 55 11/16/2024 10:53 AM EDT Temperature 36.2 C (97.1 F) 11/16/2024 9:33 AM EDT Respiratory Rate 16 11/16/2024 10:53 AM EDT Oxygen Saturation 97% 11/16/2024 10:53 AM EDT Inhaled Oxygen Concentration - - Weight 72.6 kg (160 lb) 11/08/2024 2:00 PM EDT Height 157.5 cm (5' 2 ) 11/08/2024 2:00 PM EDT Body Mass Index 29.26 11/08/2024 2:00 PM EDT Plan of Treatment Upcoming Encounters Date Type Department Care Team (Late st Contact Info) Description 03/13/2025 8:00 AM EST [facility]ointment [facility] [address] [phone] Health Maintenance Due Date Last Done Comments DTaP,Tdap,and Td Vaccines (1 - Tdap) 1978 Cervical Cancer Screening: Pap Smear 1980 Pneumococcal Vaccine: 50+ Years (1 of 1 - PCV) 2009 Zoster Vaccines (1 of 2) 2009 Hepatitis C Screening 04/11/2022 Medicare Annual Wellness Visit 04/11/2022 Osteoporosis Screening (Bone Density Screening) 04/11/2022 Social Influencers of Health Screening 04/11/2022 COVID-19 Vaccine ( season) 2024 Depression Screening 05/10/2024 Influenza Vaccine (#1) 2025 Falls Risk Assessment 11/16/2025 11/16/2024 Breast Cancer Screening 09/08/2026 09/09/19 25, 08/02/2024, 10/19/2022, Additional history exists RSV Immunization Adult Patients (1 - 1-dose 75+ series) 2034 Colorectal Cancer Screening: Colonoscopy 11/16/2034 11/16/2024 HIB Vaccines Aged Out No longer eligi [...] Procedure Name Priority Date/Time Associated Diagnosis Comments COLONOSCOPY Routine 11/16/2024 10:32 AM EDT Gastroesophageal reflux disease without esophagitis Tubular adenoma of colon EGD Routine 11/16/2024 10:32 AM EDT Gastroesophageal reflux disease without esophagitis Tubular adenoma of colon TISSUE EXAM Routine 11/16/2024 10:09 AM EDT Gastroesophageal reflux disease without esophagitis Tubular adenoma of colon MG MAMMO DIAGNOSTIC ADDL VIEWS LEFT Routine 09/08/2024 8:55 AM EDT Breast asymmetry from Last 3 Months or Most Recently Relevant to Health Maintenance Results * COLONOSCOPY Anesthesia - MAC; [facility] END[facility]COPY (11/16/2024 10:32 AM EDT) Anatomical Region Laterality Modality Endoscopy 11/16/2024 10:1 3 AM EDT Impressions 11/16/2024 10:32 AM EDT - The examined portion of the ileum was normal. - One 3 mm polyp in the transverse colon, removed with a cold snare. Resected and retrieved. - One 5 mm polyp in the descending colon, removed with a cold snare. Resected and retrieved. - One 1 mm polyp in the sigmoid colon, removed with a cold snare. Complete resection. Polyp tissue not retrieved. - Internal hemorrhoids. Recommendation: - Await pathology results. - Repeat colonoscopy for surveillance based on pathology results. Narrative 11/16/2024 10:32 AM EDT [facility] Patient Name: Shaji Hope Procedure Date: 11/16/2024 10:13 AM Date of : 1960 Age: 64 Gender: Female Note Status: Finalized Attending MD: Meghana Wang MD, Procedure Date No Time: 11/16/2024 Procedure: Colonoscopy Indications: High risk colon cancer surveillance: Personal history of non-advanced adenoma Providers: Meghana Wang MD Referring MD: Meghana Wang MD, Roz Sellers MD Medicines: Propofol per Anesthesia Complications: No immediate complications. Estimated Blood Loss: Estimated blood loss: none. Procedure: Pre-Anesthesia Assessment: - ASA Grade Assessment: II - A patient with mild systemic disease. After I obtained informed consent, the scope was passed under direct vision. Throughout the procedure, the patient's blood pressure, pulse, and oxygen saturations were monitored continuously.The Colonoscope was introduced through the anus and advanced to the terminal ileum. The colonoscopy was performed without difficulty. The patient tolerated the procedure well. The quality of the bowel preparation was excellent. Findings: The perianal and digital rectal examinations were normal. The terminal ileum appeared normal. A 3 mm polyp was found in the transverse colon. The polyp was sessile. The polyp was removed with a cold snare. Resection and retrieval were complete. A 5 mm polyp was found in the descending colon. The polyp was flat. The polyp was removed with a cold snare. Resection and retrieval were complete. A 1 mm polyp was found in the sigmoid colon. The polyp was sessile. The polyp was removed with a cold snare. Resection was complete, but the polyp tissue was not retrieved. Internal hemorrhoids were found during retroflexion. The hemorrhoids were Grade I (internal hemorrhoids that do not prolapse). Procedure Code(s): --- Professional --- 04448, Colonoscopy, flexible; with removal of tumor(s), polyp(s), or other lesion(s) by snare technique Diagnosis Code(s): --- Professional --- Z86.010, Personal history of colonic polyps D12.3, Benign neoplasm of transverse colon (hepatic flexure or splenic flexure) D12.4, Benign neoplasm of descending colon D12.5, Benign neoplasm of sigmoid colon CPT copyright 2020 [employer]. All rights reserved. The codes documented in this report are preliminary and upon counter attendant review may be revised to meet current compliance requirements. Meghana Wang MD 11/16/2024 10:32:53 AM This report has been signed electronically.Meghana Wang MD Number of Addenda: 0 Note Initiated On: 11/16/2024 10:13 AM Scope In: Scope Out: Endoscopy Department at [facility] - [address] [place] [phone] Procedure Note Meghana Wang MD - 11/16/2024 [facility] Patient Name: Shaji Hope Procedure Date: 11/16/2024 10:13 AM Date of : 1960 Age: 64 Gender: Female Note Status: Finalized Attending MD: Meghana Wang MD, Procedure Date No Time: 11/16/2024 Procedure: Colonoscopy Indications: High risk colon cancer surveillance: Personalhistory of non-advanced adenoma Providers: Meghana Wang MD Referring MD: Meghana Wang MD, Roz Sellers MD Medicines: Propofol per Anesthesia Complications: No immediate complications. Estimated Blood Loss: Estimated blood loss: none. Procedure: Pre-Anesthesia Assessment: - ASA Grade Assessment: II - A patient with mild systemic disease. After I obtained informed consent, the scope was passed under direct vision. Throughout theprocedure, the patient's blood pressure, pulse, and oxygen saturations were monitored continuously.The Colonoscope was introduced through the anus and advanced to the terminal ileum. The colonoscopy was performed without difficulty. The patient tolerated the procedure well. The quality of the bowel preparation was excellent. Findings: The perianal and digital rectal examinations were normal. The terminal ileum appeared normal. A 3 mm polyp was found in the transverse colon. The polyp was sessile. The polyp was removed with acold snare. Resection and retrieval were complete. A 5 mm polyp was found in the descending colon. The polyp was flat. The polyp was removed with a cold snare. Resection and retrieval were complete. A 1 mm polyp was found in the sigmoid colon. Thepolyp was sessile. The polyp was removed with a coldsnare. Resection was complete, but the polyp tissue wasnot retrieved. Internal hemorrhoids were found duringretroflexion. The hemorrhoids were Grade I (internal hemorrhoids that do not prolapse). Procedure Code(s): --- Professional --- 07220, Colonoscopy, flexible; with removal of tumor(s), polyp(s), or other lesion(s) by snare technique Diagnosis Code(s): --- Professional --- Z86.010, Personal history of colonic polyps D12.3, Benign neoplasm of transverse colon (hepatic flexure or splenic flexure) D12.4, Benign neoplasm of descending colon D12.5, Benign neoplasm of sigmoid colon CPT copyright 2020 [employer]. All rights reserved. The codes documented in this report are preliminary and upon counter attendant reviewmay be revised to meet current compliance requirements. Meghana Wang MD 11/16/2024 10:32:53 AM This report has been signed electronically.Meghana Wang MD Number of Addenda: 0 Note Initiated On: 11/16/2024 10:13 AM Scope In: Scope Out: Endoscopy Department at [facility] - [address] [place] [phone] IMPRESSION: - The examined portion of the ileum was normal. - One 3 mm polyp in the transverse colon, removedwith a cold snare. Resected and retrieved. - One 5 mm polyp in the descending colon, removedwith a cold snare. Resected and retrieved. - One 1 mm polyp in the sigmoid colon, removed witha cold snare. Complete resection. Polyp tissue not retrieved. - Internal hemorrhoids. Recommendation: - Await pathology results. - Repeat colonoscopy for surveillance based on pathology results. Meghana Wang MD GI~PROCEDURE ORDERABLES Final Result * EGD Anesthesia - MAC; [facility] ENDOSCOPY (11/16/2024 10:32 AM EDT) Anatomical Region Laterality Modality Endoscopy 11/16/2024 10:0 4 AM EDT Impressions 11/16/2024 10:13 AM EDT - Normal esophagus. Biopsied. - Normal stomach. Biopsied. - Normal examined duodenum. Recommendation: - Continue present medications. - Await pathology results. Narrative 11/16/2024 10:13 AM EDT [facility] Patient Name: Shaji Hope Procedure Date: 11/16/2024 10:04 AM Date of : 1960 Age: 64 Gender: Female Note Status: Finalized Attending MD: Meghana Wang MD, Procedure Date No Time: 11/16/2024 Procedure: Upper GI endoscopy Indications: Follow-up of gastro-esophageal reflux disease Providers: Meghana Wang MD Referring MD: Roz Sellers MD Medicines: Propofol per Anesthesia Complications: No immediate complications. Estimated Blood Loss: Estimated blood loss: none. Procedure: Pre-Anesthesia Assessment: - ASA Grade Assessment: II - A patient with mild systemic disease. After obtaining informed consent, the endoscope was passed under direct vision. Throughout the procedure, the patient's blood pressure, pulse, and oxygen saturations were monitored continuously.The Olympus Gastroscope was introduced through the mouth, and advanced to the second part of duodenum. The upper GI endoscopy was accomplished without difficulty. The patient tolerated the procedure well. Findings: The examined esophagus was normal. Biopsies were taken with a cold forceps for histology. The entire examined stomach was normal. Biopsies were taken with a cold forceps for histology. The cardia and gastric fundus were normal on retroflexion. The examined duodenum was normal. Procedure Code(s): --- Professional --- 59166, Esophagogastroduodenoscopy, flexible, transoral; with biopsy, single or multiple Diagnosis Code(s): --- Professional --- K21.9, Gastro-esophageal reflux disease without esophagitis CPT copyright 2020 [employer]. All rights reserved. The codes documented in this report are preliminary and upon counter attendant review may be revised to meet current compliance requirements. Meghana Wang MD 11/16/2024 10:13:12 AM This report has been signed electronically.Meghana Wang MD Number of Addenda: 0 Note Initiated On: 11/16/2024 10:04 AM Scope In: Scope Out: Endoscopy Department at [facility] - [address] [place] [phone] Procedure Note Meghana Wang MD - 11/16/2024 [facility] GI Patient Name: Shaji Hope Procedure Date: 11/16/2024 10:04 AM Date of : 1960 Age: 64 Gender: Female Note Status: Finalized Attending MD: Meghana Wang MD, Procedure Date No Time: 11/16/2024 Procedure: Upper GI endoscopy Indications: Follow-up of gastro-esophageal reflux disease Providers: Meghana Wang MD Referring MD: Roz Sellers MD Medicines: Propofol per Anesthesia Complications: No immediate complications. Estimated Blood Loss: Estimated blood loss: none. Procedure: Pre-Anesthesia Assessment: - ASA Grade Assessment: II - A patient with mild systemic disease. After obtaining informed consent, the endoscope was passed under direct vision. Throughout theprocedure, the patient's blood pressure, pulse, and oxygen saturations were monitored continuously.The Olympus Gastroscope was introduced through the mouth, and advanced to the second part of duodenum. The upperGI endoscopy was accomplished without difficulty. The patient tolerated the procedure well. Findings: The examined esophagus was normal. Biopsies weretaken with a cold forceps for histology. The entire examined stomach was normal. Biopsieswere taken with a cold forceps for histology. The cardia and gastric fundus were normal on retroflexion. The examined duodenum was normal. Procedure Code(s): --- Professional --- 36785, Esophagogastroduodenoscopy, flexible, transoral; with biopsy, single or multiple Diagnosis Code(s): --- Professional --- K21.9, Gastro-esophageal reflux disease without esophagitis CPT copyright 2020 [employer]. All rights reserved. The codes documented in this report are preliminary and upon counter attendant reviewmay be revised to meet current compliance requirements. Meghana Wang MD 11/16/2024 10:13:12 AM This report has been signed electronically.Meghana Wang MD Number of Addenda: 0 Note Initiated On: 11/16/2024 10:04 AM Scope In: Scope Out: Endoscopy Department at [facility] - [address] [place] [phone] IMPRESSION: - Normal esophagus. Biopsied. - Normal stomach. Biopsied. - Normal examined duodenum. Recommendation: - Continue present medications. - Await pathology results. us Meghana Wang MD GI~PROCEDURE ORDERABLES Final Result * Tissue exam (11/16/2024 10:09 AM EDT) Final Diagnosis A. Stomach, gastric biopsies: Antral and oxyntic type gastric mucosa with no specific pathologic change. No Helicobacter type gastritis or reactive changes identified. B. Esophagus, biopsies: Benign esophageal squamous mucosa with no specific pathologic change identified. C. Transverse Colon, polyp: Tubular adenoma. D. Descending Colon, polyp: Sessile serrated lesion. 11/17/2024 1:[address] [facility] Gross Description A. Stomach, gastric biopsies: Labeled stomach, gastric . Received in formalin are four irregular tobias mucosal tissue fragments, ranging from 0.1 cm to 0.3 cm in greatest dimension, which are wrapped in paper and submitted in toto in one cassette, four pieces, multiple levels on one slide. B. Esophagus, biopsies: Labeled esophagus biopsies . Received in formalin are five irregular pink-white mucosal tissue fragments, ranging from less than 0.1 cm to 0.4 cm in greatest dimension, which are wrapped in paper and submitted in toto in one cassette, five pieces, multiple levels on one slide. C. Large Intestine, Transverse Colon, polyp: Labeled trans colon polyp in . Received in formalin are two irregular tobias mucosal tissue fragments, each measuring approximately 0.2 cm in greatest dimension, which are wrapped in paper and submitted in toto in one cassette, two pieces, multiple levels on one slide. D. Large Intestine, Left/Descending Colon, polyp: Labeled descending colon polyp in . Received in formalin are two irregular pink-white mucosal tissue fragments, ranging from 0.1 cm to 0.6 cm in greatest dimension, which are wrapped in paper and submitted in toto in one cassette, two pieces, multiple levels on one slide. ANGLE 11/17/2024 1:[address] [facility] Disclaimer Unless otherwise specified, all tissue is 10% NB formalin fixed and paraffin embedded. 11/17/2024 1:[address] [facility] Tissue Stomach structure / Unknown 11/16/2024 10:09 AM EDT 11/16/2024 11:30 AM EDT Tissue specimen (specimen) Esophageal structure / Unknown 11/16/2024 10:10 AM EDT 11/16/2024 11:30 AM EDT Tissue specimen (specimen) Transverse colon structure / Unknown 11/16/2024 10:23 AM EDT 11/16/2024 11:30 AM EDT Tissue specimen (specimen) Descending colon structure / Unknown 11/16/2024 10:24 AM EDT 11/16/2024 11:30 AM EDT us Meghana Wang MD LAB PATHOLOGY ORDERABLES Final Result [facility] [address] [place] [address], [place] [phone] * [facility] Mammo Diagnostic Addl Views Left (09/08/2024 8:55 AM EDT) Anatomical Region Laterality Modality Breast Left Mammography 09/08/2024 8:20 AM EDT Impressions 09/08/2024 9:00 AM EDT Left breast mass, likely a small cyst. Recommend 6 month follow-up with left diagnostic mammogram and ultrasound. BI-RADS CATEGORY: Mammography: 3 - PROBABLY BENIGN Ultrasound: 3 - PROBABLY BENIGN RECOMMENDATIONS: Short Interval Follow-up is recommended for the left breast in 6 months. Ultrasound of the left breast is recommended in 6 months. Mammo Location: [facility], [address] [place] [address], [id number], . -------- FINAL REPORT -------- Dictated By: Lucila Bates Dictated Date: 09/08/2024 08:20 ET Assigned Physician: Lucila Bates Reviewed and Electronically Signed By: Lucila Bates Signed Date: 09/08/2024 09:00 ET Workstation ID: [id number] Transcribed By: Self Edit Transcribed Date: 09/08/2024 [...] left lower outer breast at middle depth. Targeted ultrasound is recommended for further evaluation. BREAST DENSITY: B - There are scattered areas of fibroglandular density. ULTRASOUND TECHNIQUE: Targeted ultrasound evaluation of the left breast was performed. There is a 4 mm hypoechoic mass 4-5 o'clock 4 cm from the nipple. This is too small to characterize, however likely represents a small cyst. Roz Sellers MD IMG BI PROCEDURES Final Result from Last 3 Months or Most Recently Relevant to Health Maintenance Insurance MEDICARE [facility] Care Teams Claim Taker Relationship Specialty Start Date End Date Roz Sellers MD [address] [place] [phone] PCP - General Internal Medicine 09/08/24
--- OUTSIDE RECORDS SUMMARY | 2024-12-27 09:41 | XMS_ITS | Clinical Summary ---
Author Organization [facility] Address [address] [place] [phone] Phone Care Team Providers Care Senior National Account Manager Name Role Phone Unknown, Unknown Primary Care Provider Cassandra silveira Allergies Active Allergy Reactions Criticality Noted Date Comments Ampicillin 09/26/2019 Medications loratadine (CLARITIN) 10 mg tablet Take 10 mg by mouth daily. Active Active Problems No known active problems Social History Tobacco Use Types Packs/Day Years Used Date Smoking Tobacco: Never Smokeless Tobacco: Never Alcohol Use Standard Drinks/Week Comments Yes 3 (1 standard drink = 0.6 oz pur e alcohol) occ Education Answer Date Recorded Are you interested in more education? Not on manjit e 09/04/2022 Are you concerned about learning? Not on file 09/04/2022 No 09/04/2022 No 09/04/2022 Digital Access Answer Date Recorded No 10/03/2022 No 10/03/2022 No 10/03/2022 Reliable internet access at home? Not on file 10/03/2022 Device with a working camera? Not on file Comments Unknown Sex and Gender Information Value Date Recorded Sex Assigned at Female 09/26/2019 12:07 PM EDT Legal Sex Female 11:45 AM EDT Gender Identity Female 09/26/2019 12:07 PM EDT Sexual Orientation Straight 09/26/2019 12 :07 PM EDT Last Filed Vital Signs Vital Sign Reading Time Taken Comments Blood Pressure - - Pulse - - Temperature - - Respiratory Rate - - Oxygen Saturation - - Inhaled Oxygen Concentration - - Weight 70.3 kg (155 lb) 10/18/2019 3:37 PM EDT Height 157.5 cm (5' 2 ) 10/18/2019 3:37 PM EDT Body Mass Index 28.35 10/18/2019 3:37 PM EDT Plan of Treatment Health Maintenance Due Date Last Done Comments Adult Td,Tdap Booster 1960 LIPID PANEL 1960 DEPRESSION SCREENING 1971 HEPATITIS C SCREENING 1977 HIV ONE-TIME SCREENING (18-6 5 YEARS) 1977 MAMMOGRAM 1999 COLOGUARD 2004 COLONOSCOPY 2004 COLORECTAL CANCER SCREENING 2004 FIT TEST 2004 FOBT 2004 SIGMOIDOSCOPY 2004 VIRTUAL COLONOSCOPY 2004 PNEUMOCOCCAL VACCINES (50+ y ears) (1 of 1 - PCV) 2009 ZOSTER VACCINES (1 of 2) 2009 COVID-19 VACCINE ( - 2023-2 5 season) 2024 OSTEOPOROSIS SCREENING INITI AL (ONE-TIME) 2024 RSV VACCINE (1 - 1-dose 75+ series) 2034 SMOKING STATUS SCREENING (On ce After 26 Yrs) Completed 10/18/2019 HEPATITIS A VACCINES Aged Out No long er eligible based on patient's age to complete this topic HIB VACCINES Aged Out No longer eligi ble based on patient's age to complete this topic MENINGOCOCCAL VACCINES (ACWY) Aged Out No longer eligible based on patient's age to complete this topic MENINGOCOCCAL VACCINES (B) Aged Out N o longer eligible based on patient's age to complete this topic Medical Devices Not on file Insurance [employer] PLANS DIRECT DIRECT DIRECT DIRECT PLANS DIRECT DIRECT DIRECT [place] [address] [address] [place] [address] DIRECT [employer] Care Teams Senior National Account Manager Relationship Specialty Start Date End Date Unknown, Unknown, PCP - General 09/26/19 Additional Source Comments The information contained in this document represents components of the legal health record. It is not the complete legal health record[facility]
== END 2024-12-27 10:26 | disposition home or self-care (01) ==
PROVIDERS: PCP Internal Medicine; Visit Provider Physician Assistant Medical
DX: S80.11XA Contusion of right lower leg, initial encounter (principal)

== ENCOUNTER → 2024-12-27 08:58 | Outpatient (BNVA) | payer MEDICARE, SELFPAY | PROVIDERS: PCP Internal Medicine; Visit Provider Physician Assistant Medical | DX: S80.11XA Contusion of right lower leg, initial encounter (principal) | CPT/HCPCS: 99212 ==